=== PATIENT | female | born 2000 | race Caucasian/White ===

== ENCOUNTER 2024-06-14 11:09 | Emergency (ER) | payer OTHER, MEDICAID, SELFPAY ==
--- NOTE | ~2024-06-14 | CT_ITS ---
EXAMINATION: CT abdomen pelvis wo con DATE: 06/14/2024 13:00 INDICATION: Right flank pain. TECHNIQUE: Computed tomography (CT) of the abdomen and pelvis was performed without intravenous contr ast. Automated exposure control and iterative reconstruction technique were employed. The dose-length product was 1474.56 mGy-cm. COMPARISON: None. FINDINGS: The visualized portions of lung bases are clear without pneumonia or pleural effusion. The heart size is normal. No pericardial effusion. The liver, spleen, gallbladder, pancreas, adrenal glan ds, and kidneys are normal. There is no urolithiasis. There are no dilated loops of bowel. The append ix is normal. There is an umbilical hernia containing fat. There is a mildly enlarged left para-aorti c lymph node, likely reactive. There is physiologic fluid in the pelvis. There is fat stranding in th e greater omentum, likely edema or inflammation. There is mild thoracic and lumbar spondylosis. IMPRESSION: 1. No urolithiasis. 2. Umbilical hernia containing fat. 3. Fat stranding in the greater omentum, likely edema or inflammation. Reviewed, dictated and finalized at location B.
[2024-06-14 11:22] VITALS: BP 136/82; PULSE 78; RESP 16; TEMP 36.6; O2SAT 100
[2024-06-14 12:30] LABS: Basophils Percent Auto 0.6 % (0.2-1.2); Eosinophils Absolute Auto 0.2 K/mm3 (0-0.3); Eosinophils Percent Auto 2.7 % (0-4.4); Hematocrit 37.8 % (37.0-47.0); Immature Granulocyte Absolute 0.02 K/mm3 (0.00-0.031); Immature Granulocyte Percent A 0.3 % (0-0.5); Lymphocytes Absolute Auto 1.48 K/mm3 (0.9-3.2); Lymphocytes Percent Auto 22.5 % (18.3-44.2); Mean Corpuscular HGB Conc 31.7 g/dl (32-36); Mean Corpuscular Hemoglobin 25.6 pg (26-34); Mean Corpuscular Volume 80.8 fl (80-100); Mean Platelet Volume 9.1 fl (7.4-10.4); Monocytes Absolute Auto 0.4 K/mm3 (0.1-0.6); Monocytes Percent Auto 6.4 % (2.6-8.5); Neutrophils Absolute Auto 4.4 K/mm3 (1.3-6.7); Neutrophils Percent Auto 67.5 % (45.5-73.1); Platelet Count Result 264 k/mm3 (150-375); Red Blood Count 4.68 M/mm3 (4.2-5.4); Red Cell Distribution Width 14.6 % (11.5-14.5); White Blood Count 6.6 K/mm3 (4.5-10.0)
[2024-06-14 12:38] LABS: Add Urine Microscopic? NO; Appearance Urine Clear (Clear); Bilirubin Urine Negative (Negative); Blood Urine Negative (Negative); Color Urine Yellow (Yellow); Glucose Urine UA Negative (Negative); Ketones Urine Negative (Negative); Leukocyte Esterase Ur Negative LEU/UL (Negative); Nitrate Urine Negative (Negative); Protein Urine Negative (Negative); Specific Grav Ur 1.017 (1.001-1.035); Urobilinogen Urine 0.2 mg/dL (<2.0); pH Urine 7.5 (5.0-9.0)
[2024-06-14 12:41] LABS: Alanine Aminotransferase 17 U/L (6-35); Albumin Level 4.5 g/dL (3.5-5.1); Alkaline Phosphatase 66 U/L (38-126); Anion Gap 8 mmol/L (4-12); Aspartate Amino Transferase 28 U/L (14-36); Bilirubin,Total 0.3 mg/dL (0.2-1.3); Blood Urea Nitrogen 10 mg/dL (7-17); Calcium 8.9 mg/dL (8.4-10.2); Carbon Dioxide 21 mmol/L (22-30); Chloride 108 mmol/L (98-107); Estimated CRCL calculation 130 ml/min; Estimated Glomerular Filt Rate > 60; Glucose 98 mg/dL (65-110); Lipase 43 U/L (23-300); Potassium 4.6 mmol/L (3.4-5.0); Sodium 137 mmol/L (137-145)
[2024-06-14 12:45] LABS: BEDSIDEPREGUCG Negative (Negative)
--- NOTE | 2024-06-14 12:54 | ED_ITS ---
HPI - Back Pain/Injury General Chief Complaint: Back Pain/Injury Stated Complaint: back pain, pain when walking Time Seen by Provider: 06/14/24 12:02 History of Present Illness HPI Narrative: 23-year-old female with history of morbid obesity and umbilical hernia presents to the emergency department for evaluation of right-sided back pain radiating towards her abdomen. She states that she was diagnosed the umbilical hernia recently 2 weeks ago a different hospital. Is reducible and not bothering her today but she states that she started developing some back pain in the right- sided paraspinal muscles radiating towards her flank and into her abdomen. No history of kidney stones. No trauma or injury. She denies any paresthesias or numbness in her legs, no saddle anesthesias, no urinary incontinence. No fever chills. She was otherwise in her normal state of health. Has taken Tylenol without any relief of her symptoms. Related Data Allergies Allergy/AdvReac Type Severity Reaction Status Date / Time No Known Allergies Allergy Verified 06/14/24 11:13 Review of Systems 2 Review of Systems: As reviewed above in HPI Exam 2 Narrative: GENERAL: [Well-appearing, well-nourished, and in no acute distress.] HEAD: [Normocephalic, atraumatic.] EYES: [PERRLA and EOMI.] ENT: Nares clear, no rhinorrhea or epistaxis. Mucous membranes moist. NECK: Supple. CHEST: [Clear to auscultation. No respiratory distress.] HEART: [Regular rate and rhythm]. No murmur heard. [Normal peripheral pulses.] ABDOMEN: [Soft, nondistended], umbilical hernia is reducible, no overlying skin changes. [nontender], [No rigidity or guarding] no CVA tenderness. EXTREMITIES: Normal range of motion. [No edema.] Able to stand up and ambulate in the emergency department. Flexion and extension at the hips and ankles is 5/5 bilaterally. SKIN: Warm, dry, no rash. NEURO: [No focal deficits]. Alert and oriented [x3.] No saddle anesthesia. No incontinence. PSYCH: [Normal mood and affect.] Course Vital Signs Vital signs: Vital Signs Temperature 36.6 C 06/14/24 11:22 Pulse Rate 78 06/14/24 11:22 Respiratory Rate 16 06/14/24 11:22 Blood Pressure 136/82 06/14/24 11:22 Pulse Oximetry 100 06/14/24 11:22 Oxygen Delivery Room Air 06/14/24 11:22 Temperature 36.6 C 06/14/24 11:22 Pulse Rate 78 06/14/24 11:22 Respiratory Rate 16 06/14/24 11:22 Blood Pressure 136/82 06/14/24 11:22 Pulse Oximetry 100 06/14/24 11:22 Oxygen Delivery Room Air 06/14/24 11:22 MDM - Back Pain/Injury MDM Narrative Medical decision making narrative: 23-year-old otherwise healthy female presenting to the emergency department for evaluation of right-sided flank, back and abdominal pain. She was diagnosed with umbilical hernia recently and has an umbilical hernia examination is easily reducible without any overlying skin changes. Denies any urinary complaints. No red flag signs of back pain such as cauda equina or conus medullaris symptoms. No saddle anesthesia, no incontinence, no weakness or neuropathy. Strength is symmetric in both legs, able to ambulate and stand up in the emergency department. Normal vital signs. She is otherwise well-appearing but morbidly obese. Considerations presently are for kidney stone, renal colic, pyelonephritis, umbilical hernia, lumbago. Blood was obtained as well as urinalysis and urine test. A CT scan of the abdomen pelvis without contrast was obtained to assess for any potential kidney stones or other intra- abdominal process. She was given ketorolac and Robaxin and re-evaluated. Workup shows no leukocytosis or anemia. Normal platelet count. Electrolytes within normal limits, normal renal and hepatic function panel. Normal lipase. Urinalysis without signs of infection. Negative test. CT scan shows no urolithiasis or any acute process. She has an umbilical hernia containing fat which is not strangulated. Some fat stranding in the greater omentum likely edema versus inflammation. No pathological free fluid, mild thoracic and lumbar spondylosis. Normal liver spleen gallbladder pancreas, kidneys and adrenal glands. Patient re-evaluated with improvement in pain. She is not any acute distress and has normal vital signs and normal examination findings with unremarkable workup. She is safe and stable for discharge home with regular PCP follow-up this time. Medical Records Attestation: I reviewed the patient's medical records. Lab Data Attestation: I reviewed the patient's lab results. 06/14/24 12:21 06/14/24 12:21 Labs: Lab Results 06/14/24 06/14/24 06/14/24 Range/Units 12:21 12:26 12:42 WBC 6.6 (4.5-10.0) K/mm3 RBC 4.68 (4.2-5.4) M/mm3 Hgb 12.0 (12.0-15.0) g/dL Hct 37.8 (37.0-47.0) % MCV 80.8 (80-100) fl MCH 25.6 L (26-34) pg MCHC 31.7 L (32-36) g/dl RDW 14.6 H (11.5-14.5) % Plt Count 264 (150-375) k/mm3 MPV 9.1 (7.4-10.4) fl Immature Gran % (Auto) 0.3 (0-0.5) % Neut % (Auto) 67.5 (45.5-73.1) % Lymph % (Auto) 22.5 (18.3-44.2) % Dukes % (Auto) 6.4 (2.6-8.5) % Eos % (Auto) 2.7 (0-4.4) % Baso % (Auto) 0.6 (0.2-1.2) % Lymph # (Auto) 1.48 (0.9-3.2) K/mm3 Dukes # (Auto) 0.4 (0.1-0.6) K/mm3 Eos # (Auto) 0.2 (0-0.3) K/mm3 Baso # (Auto) 0.0 (0.0-0.1) K/mm3 Abs Immat Gran (auto) 0.02 (0.00-0.031) K/mm3 Absolute Neuts (auto) 4.4 (1.3-6.7) K/mm3 Absolute Nucleated RBC 0.000 (0.0-0.012) K/mm3 Nucleated RBC % 0.0 (0.0-0.2) % Sodium 137 (137-145) mmol/L Potassium 4.6 (3.4-5.0) mmol/L Chloride 108 H (98-107) mmol/L Carbon Dioxide 21 L (22-30) mmol/L Anion Gap 8 (4-12) mmol/L BUN 10 (7-17) mg/dL Creatinine 0.70 (0.7-1.0) mg/dL Estim Creat Clear Calc 130 ml/min Estimated GFR > 60 (59 - ) Glucose 98 (65-110) mg/dL Calcium 8.9 (8.4-10.2) mg/dL Total Bilirubin 0.3 (0.2-1.3) mg/dL AST 28 (14-36) U/L ALT 17 (6-35) U/L Alkaline Phosphatase 66 (38-126) U/L Total Protein 7.0 (6.3-8.2) g/dL Albumin 4.5 (3.5-5.1) g/dL Lipase 43 (23-300) U/L Urine Color Yellow (Yellow) Urine Appearance Clear (Clear) Urine pH 7.5 (5.0-9.0) Ur Specific [place] 1.017 (1.001-1.035) Urine Protein Negative (Negative) mg/dL Urine Glucose (UA) Negative (Negative) mg/dL Urine Ketones Negative (Negative) mg/dL Ur Blood (Man) Negative (Negative) Urine Nitrate Negative (Negative) Urine Bilirubin Negative (Negative) Urine Urobilinogen 0.2 (<2.0) mg/dL Leukocyte Esterase Rfl Negative (Negative) YESENIA/UL POC Urine HCG, Qual Negative (Negative) Imaging Data Attestation: I personally reviewed and interpreted this imaging study as follows: My impression: Impressions Abdomen/Pelvis CT 06/14/24 13:02 IMPRESSION: 1. No urolithiasis. 2. Umbilical hernia containing fat. 3. Fat stranding in the greater omentum, likely edema or inflammation. Discharge Plan Discharge Clinical Impression: Strain of lumbar region, Right flank pain, Hernia, umbilical Patient Disposition: Home, Self-Care Condition: Stable Instructions: Antibiotic Form, Acute Low Back Pain (ED), Flank Pain (ED), Lower Back Exercises (ED) Additional Instructions: Your CT scan shows no kidney stones, no organ damage or any concerning findings of your liver, spleen, gallbladder, pancreas, adrenal glands or kidneys. Labs are all normal. You have the umbilical hernia without any signs of obstruction. Some mild spondylosis of the lumbar region which is minor disc bulging but no concerning compression or deformity. We will send you home with some medications to try including oral anti-inflammatories and topical lidocaine patch. Follow-up with regular doctor. Return with any new or worsening concerns. Patient Language: Mongolian Prescriptions: New ketorolac 10 mg tablet 10 mg PO Q8H PRN (Reason: pain) 5 Days Qty: 20 0RF Rx Instructions: maximum total duration of 5 days from all oral, intranasal, or parenteral formulations lidocaine 5 % adhesive patch,medicated 1 patch topical DAILY Qty: 15 0RF Rx Instructions: leave on most painful area for up to 12 hrs Follow-up/Referrals: Sania,Nataly Leon APN [Primary Care Provider] - Time of Disposition: 14:18
--- OUTSIDE RECORDS SUMMARY | 2024-06-14 12:56 | XMS_ITS | Referral Summary ---
Author Organization [facility] Address [address] [place] [address] Care Team Providers Care Band Saw Operator Cake Cutting Name Role Phone Michael Sagastume MD Primary Care Provider [phone] Source Comments [facility],non-owned Affiliates and Associated Physician Practices is amultiple site organization consisting of ambulatory clinics and hospital sitesin [place], [place], [place] and [place]. This disclosure is being madepursuant to the Care Everywhere program and may not contain all information available regarding this patient. Last updated 17.[facility] Allergies No known active allergies Medications * Be aware that medications may not be up to date on this document. Alwaysverify current medications with the patient. Medication Sig Dispensed Refills Start Date End Date Status acetaminophen (TYLENOL) 500 MG tablet Take 1,000 mg by mouth every 4 hours as needed for Fever or Pain Maximum allowable Acetaminophen amount = 4 Grams (4000 mg) / 24 hours. Active multivitamin daily tablet Take 1 tablet by mouth daily with food Active fluticasone propionate (FLONASE) 50 MCG/ACT nasal spray [place] 2 sprays into each nostril once daily Aim at outer edges inside nostrils. 1 g 5 10/12/2019 Active montelukast (SINGULAIR) 5 MG chew tablet Take 1 tablet by mouth at bedtime 30 tablet 3 10/12/2019 Active sodium chloride-sodium bicarb 2300-700mg (NEILMED SINUS RINSE) 2300-700 MG Kit [place] 1 kit into each nostril as directed 1 kit 11 10/12/2019 Active ondansetron, disintegrating, (ZOFRAN ODT) 4 MG tablet Take 1 tablet by mouth every 6 hours as needed for Nausea/Vomiting Allow tablet to dissolve on the tongue 30 tablet 3 01/24/2020 Active naproxen (NAPROSYN) 500 MG tablet Take 1 tablet by mouth 2 times daily as needed for Pain (3 days per week at most) 24 tablet 3 01/24/2020 Active Vit-Fe Fumarate-FA ( VITAMIN) 28-0.8 MG tablet Take 1 tablet by mouth once daily Active Active Problems Problem Noted Date Diagnosed Date Chronic headache 07/19/2018 Nausea and vomiting 07/19/2018 DERIK (obstructive sleep apnea) DERIK on CPAP Estimated Date of Delivery Comme nts Yes 11/09/2020 Immunizations Name Administration Dates Next Due DTaP VACCINE IM (6wk-6yrs) 12/15/2004,,04/04/2001,2000,2000 HEP A PEDS 2 DOSE 05/24/2008,04/14/2006 HEP B VACCINE, PED/ADOL 04/04/2001,01/28/2001, HIB-PRP-T 4 DOSE 01/09/2002, 1,01/28/2001,2000 Human Papilloma Virus Vaccine 10/25/2012, 012,10/15/2011 INFLUENZA VACCINE, QUADR. (F LUZONE; FLULAVAL; FLUARIX; AFLURIA QUADRIVALENT; 6MO+), 0.5 ML (IIV4) 01/15/2014 MENINGOCOCAL MENINGITIS 10/15/2011 MMR 12/15/2004,01/09/2002 POLIO IPV 12/15/2004, 1,01/28/2001,2000 TDAP (7yrs+) 10/15/2011 VARICELLA 05/24/2008,01/09/2002 Social History Tobacco Use Types Packs/Day Years Used Date Smoking Tobacco: Never Smokeless Tobacco: Never Alcohol Use Standard Drinks/Week Comments Not Asked 0 (1 standard drink = 0.6 oz pur e alcohol) Estimated Date of Delivery Comme nts Yes 11/09/2020 Sex and Gender Information Value Date Recorded Sex Assigned at Not on file Gender Identity Not on file Sexual Orientation Not on file Last Filed Vital Signs Vital Sign Reading Time Taken Comments Blood Pressure 134/80 04/11/2020 2:51 PM EMPLOYMENT INTERVIEWER Pulse 90 04/26/2019 9:11 AM EMPLOYMENT INTERVIEWER Temperature 36.6 C (97.9 F) 04/27/2018 11:14 AM EMPLOYMENT INTERVIEWER per pcp Respiratory Rate 20 04/27/2018 11:1 4 AM EMPLOYMENT INTERVIEWER per pcp Oxygen Saturation 97% 04/26/2019 9:11 AM EMPLOYMENT INTERVIEWER Inhaled Oxygen Concentration - - Weight 123.7 kg (272 lb 11.3 oz) 04/11/2020 2:51 PM EMPLOYMENT INTERVIEWER Height 165.8 cm (5' 5.28 ) 04/11/2020 2:51 PM CS T Body Mass Index 45 04/11/2020 2:51 PM EMPLOYMENT INTERVIEWER Plan of Treatment Not on file DAVEYORIN Personal/Famil y Other [address] [place] [address] DAVEYORIN Personal/Famil y Other [address] [place] [address] DAVEYORIN Personal/Famil y Other [address] [place] [address] RAYSA MARISCAL Personal/Famil y Other [address] [address] DAVEYORIN Personal/Famil y Other [address] [place] [address] DAVEYORIN Personal/Famil y Other [address] [place] [address] ORIN MARISCAL Personal/Famil y Other [address] [place] [address] Care Teams Band Saw Operator Cake Cutting Relationship Specialty Start Date End Date Michael Sagastume MD [address] [place], [place] [id number] PCP - General 12/31/17
--- OUTSIDE RECORDS SUMMARY | 2024-06-14 12:56 | XMS_ITS ---
Care Plan - [facility] Created on: June 14, 2024 KASIE NOE Simon : 2000 Sex: Female Author Organization [facility] Address [address] [place] [address] Phone Care Team Providers Care Non Destructive Testing Scientist Name Role Phone WEBSTER EVER BARGER, ADITI Primary Care Provider [phone] DINO HIDALGO, [place] Unavailable [phone]
--- OUTSIDE RECORDS SUMMARY | 2024-06-14 12:56 | XMS_ITS | Patient Health Summary ---
Author Organization [facility] Address [address] [place] [address] Care Team Providers Care Lease Out Worker Name Role Phone Michael Sagastume MD Primary Care Provider [phone] Note from [facility],non-owned Affiliates and Associated Physician Practices is amultiple site organization consisting of ambulatory clinics and hospital sitesin [place], [place], [place] and [place]. This disclosure is being madepursuant to the Care Everywhere program and may not contain all information available regarding this patient. Last updated 17.[facility] Allergies No known active allergies Medications * Be aware that medications may not be up to date on this document. Alwaysverify current medications with the patient. * acetaminophen (TYLENOL) 500 MG tablet Take 1,000 mg by mouth every 4 hours as needed for Fever or Pain Maximum allowable Acetaminophen amount = 4 Grams (4000 mg) / 24 hours. * multivitamin daily tablet Take 1 tablet by mouth daily with food * fluticasone propionate (FLONASE) 50 MCG/ACT nasal spray(Started 10/12/2019) [place] 2 sprays into each nostril once daily Aim at outer edges inside nostrils. 5 refills by 2020 * montelukast (SINGULAIR) 5 MG chew tablet(Started 10/12/2019) Take 1 tablet by mouth at bedtime 3 refills by 2020 * sodium chloride-sodium bicarb 2300-700mg (NEILMED SINUS RINSE) 2300-700 MG Kit (Started 10/12/2019) [place] 1 kit into each nostril as directed 11 refills by 2020 * ondansetron, disintegrating, (ZOFRAN ODT) 4 MG tablet(Started 01/24/2020) Take 1 tablet by mouth every 6 hours as needed for Nausea/Vomiting Allow tablet to dissolve on the tongue 3 refills by 01/23/2021 * naproxen (NAPROSYN) 500 MG tablet(Started 01/24/2020) Take 1 tablet by mouth 2 times daily as needed for Pain (3 days per week at most) 3 refills by 01/23/2021 * Vit-Fe Fumarate-FA ( VITAMIN) 28-0.8 MG tablet Take 1 tablet by mouth once daily Active Problems Problem Noted Date Diagnosed Date Chronic headache 07/19/2018 Nausea and vomiting 07/19/2018 DERIK (obstructive sleep apnea) DERIK on CPAP Immunizations * DTaP VACCINE IM (6wk-6yrs)(Given 12/15/2004, 01/09/2002, 04/04/2001, 01/28/2001, 2000) * HEP A PEDS 2 DOSE(Given 05/24/2008, 04/14/2006) * HEP B VACCINE, PED/ADOL(Given 04/04/2001, 01/28/2001, 2000) * HIB-PRP-T 4 DOSE(Given 01/09/2002, 04/04/2001, 01/28/2001, 2000) * Human Papilloma Virus Vaccine(Given 10/25/2012, 02/16/2012, 10/15/2011) * INFLUENZA VACCINE, QUADR. (FLUZONE; FLULAVAL; FLUARIX; AFLURIA QUADRIVALENT; 6MO+), 0.5 ML (IIV4)(Given 01/15/2014) * MENINGOCOCAL MENINGITIS(Given 10/15/2011) * MMR(Given 12/15/2004, 01/09/2002) * POLIO IPV(Given 12/15/2004, 04/04/2001, 01/28/2001, 2000) * TDAP (7yrs+)(Given 10/15/2011) * VARICELLA(Given 05/24/2008, 01/09/2002) Social History Tobacco Use Types Packs/Day Years [...] Comments Blood Pressure 134/80 04/11/2020 2:51 PM RESOURCE ROOM TEACHER Pulse 90 04/26/2019 9:11 AM RESOURCE ROOM TEACHER Temperature 36.6 C (97.9 F) 04/27/2018 11:14 AM RESOURCE ROOM TEACHER per pcp Respiratory Rate 20 04/27/2018 11:1 4 AM RESOURCE ROOM TEACHER per pcp Oxygen Saturation 97% 04/26/2019 9:11 AM RESOURCE ROOM TEACHER Inhaled Oxygen Concentration - - Weight 123.7 kg (272 lb 11.3 oz) 04/11/2020 2:51 PM RESOURCE ROOM TEACHER Height 165.8 cm (5' 5.28 ) 04/11/2020 2:51 PM CS T Body Mass Index 45 04/11/2020 2:51 PM RESOURCE ROOM TEACHER Procedures * EKG 15-LEAD(Performed 01/24/2020) Performed for Syncope and collapse, Non-intractable vomiting with nausea, unspecified vomiting type * HEMOGLOBIN A1C(Performed 01/24/2020) Performed for Migraine without aura and without status migrainosus, not intractable, Non-intractable vomiting with nausea, unspecified vomiting type * AMYLASE BLOOD(Performed 01/24/2020) Performed for Migraine without aura and without status migrainosus, not intractable, Non-intractable vomiting with nausea, unspecified vomiting type * LIPASE BLOOD(Performed 01/24/2020) Performed for Migraine without aura and without status migrainosus, not intractable, Non-intractable vomiting with nausea, unspecified vomiting type * TSH(Performed 01/24/2020) Performed for Migraine without aura and without status migrainosus, not intractable, Non-intractable vomiting with nausea, unspecified vomiting type * T4 FREE(Performed 01/24/2020) Performed for Migraine without aura and without status migrainosus, not intractable, Non-intractable vomiting with nausea, unspecified vomiting type * MAGNESIUM BLOOD(Performed 01/24/2020) Performed for Migraine without aura and without status migrainosus, not intractable, Non-intractable vomiting with nausea, unspecified vomiting type * COMPREHENSIVE METABOLIC PANEL(Performed 01/24/2020) Performed for Migraine without aura and without status migrainosus, not intractable, Non-intractable vomiting with nausea, unspecified vomiting type * CBC W AUTO DIFFERENTIAL(Performed 01/24/2020) Performed for Migraine without aura and without status migrainosus, not intractable, Non-intractable vomiting with nausea, unspecified vomiting type * PEDIATRIC DIAGNOSTIC POLYSOMNOGRAM(Performed 10/23/2018) Performed for Loud snoring, Headache disorder Results * EKG 15-LEAD (01/24/2020 11:54 AM CDT) Ventricular Rate 65 BPM CG MUSE Atrial Rate 65 BPM CG MUSE P-R Interval 122 ms CG MUSE QRS Duration ms 76 ms CG MUSE Q-T Interval ms 404 ms CG MUSE QTC Calculation (Bezet) 420 ms CG MUSE Calculated P [place] 90 degrees CG MUSE Calculated R [place] 88 degrees CG MUSE Calculated T [place] 62 degrees CG MUSE Interpretation EKG Normal sinus rhythm Normal ECG No previous ECGs available Confirmed by MD MICHELLE, KSENIA ([id number]) on 01/24/2020 6:12:56 PM CG MUSE 01/24/2020 11:5 4 AM CDT 01/24/2020 6:12 PM CDT Genet Manuel INDEPENDENT CONSULTANT-EXECUTIVE DIRECTOR OF NURSING ECG ORDERA BLES CG MUSE * HEMOGLOBIN A1C (01/24/2020 11:36 AM CDT) Hemoglobin A1c 5.5 3.4 - 6.1 % 01/24/2020 12:36 PM CDT [facility] Estimated Average Glucose 111 mg/dL 01/24/2020 12:36 PM CDT [facility] Blood BLOOD SPECIMEN / Unknown Lab Venipuncture / Unknown 01/24/2020 11:36 AM CDT 01/24/2020 11:56 AM CDT Genet Manuel INDEPENDENT CONSULTANT-EXECUTIVE DIRECTOR OF NURSING LAB - CHEM ISTRY ORDERABLES [facility] [address] [place] [address] * (ABNORMAL) CBC W DIFFERENTIAL (01/24/2020 11:36 AM CDT) WBC 7.2 4.4 - 10.7 x10E9/L 01/24/2020 12:30 PM CDT [facility] WBC Corrected 01/24/2020 12:30 PM CDT [facility] RBC 4.69 3.80 - 5.20 x10E12/L 01/24/2020 12:30 PM CDT [facility] Hemoglobin 12.6 12.0 - 15.6 gm/dL 01/24/2020 12:30 PM CDT [facility] Hematocrit 39.4 35.9 - 45.5 % 01/24/2020 12:30 PM CDT [facility] MCV 84.0 80.7 - 102.0 fl 01/24/2020 12:30 PM CDT [facility] MCH 26.9 26.7 - 34.0 pg 01/24/2020 12:30 PM CDT [facility] MCHC 32.0 30.8 - 35.9 gm/dL 01/24/2020 12:30 PM CDT [facility] Platelet Count 310 153 - 416 x10E9/L 01/24/2020 12:30 PM CDT [facility] RDW-CV 13.2 12.1 - 14.9 % 01/24/2020 12:30 PM CDT [facility] MPV 9.3(L) 9.4 - 12.9 fl 01/24/2020 12:30 PM CDT [facility] Neutrophils % 60.1 44.0 - 73.0 % 01/24/2020 12:30 PM CDT [facility] Lymphocytes % 31.9 20.0 - 43.0 % 01/24/2020 12:30 PM CDT [facility] Monocytes % 6.1 5.0 - 13.0 % 01/24/2020 12:30 PM CDT [facility] Eosinophils % 1.0 0.0 - 6.0 % 01/24/2020 12:30 PM CDT [facility] Basophils % 0.6 0.0 - 2.0 % 01/24/2020 12:30 PM CDT [facility] Immature Granulocytes 0.3 0 - 1 % 01/24/2020 12:30 PM CDT [facility] Neutrophil Absolute 4.35 2.01 - 7.14 x10E9/L 01/24/2020 12:30 PM CDT [facility] Lymphocytes Absolute 2.30 1.07 - 3.94 x10E9/L 01/24/2020 12:30 PM CDT [facility] Monocytes Absolute 0.44 0.26 - 1.07 x10E9/L 01/24/2020 12:30 PM CDT [facility] Eosinophils Absolute 0.07 0 - 0.47 x10E9/L 01/24/2020 12:30 PM CDT [facility] Basophils Absolute 0.04 0 - 0.08 x10E9/L 01/24/2020 12:30 PM CDT [facility] Immature Granulocytes Absolute 0.02 0.00 - 0.06 x10E9/L 01/24/2020 12:30 PM T [facility] nRBC Auto 0 /100 WBC 01/24/2020 12:30 PM T [facility] Blood BLOOD SPECIMEN / Unknown Lab Venipuncture / Unknown 01/24/2020 11:36 AM CDT 01/24/2020 11:56 AM CDT Genet Manuel APRN-EXECUTIVE DIRECTOR OF NURSING LAB - JOSÉ MIGUEL TOLOGY ORDERABLES Performing Organization Address City/State/[facility] Co de Phone Number [facility] [address] [place] [phone] * (ABNORMAL) COMPREHENSIVE METABOLIC PANEL (01/24/2020 11:36 AM CDT) [facility] Glucose 104 70 - 105 mg/dL 01/24/2020 12:34 PM CDT [facility] Sodium 140 136 - 145 mmol/L 01/24/2020 12:34 PM CDT [facility] Potassium 4.7 3.5 - 5.1 mmol/L 01/24/2020 12:34 PM T [facility] Chloride 108(H) 98 - 107 mmol/L 01/24/2020 12:34 PM T [facility] CO2 25 22 - 29 mmol/L 01/24/2020 12:34 PM CDT [facility] Calcium 8.97(L) 9.08 - 10.48 mg/dL 01/24/2020 12:34 PM T [facility] Anion Gap 7 5 - 20 mmol/L 01/24/2020 12:34 PM T [facility] BUN 4.3(L) 5.3 - 18.7 mg/dL 01/24/2020 12:34 PM T [facility] Creatinine 0.67 0.61 - 1.07 mg/dL 01/24/2020 12:34 PM T [facility] Alkaline Phosphatase 85 39 - 139 U/L 01/24/2020 12:34 PM CDT [facility] ALT 38 8 - 65 U/L 01/24/2020 12:34 PM T [facility] AST 28 5 - 34 U/L 01/24/2020 12:34 PM T [facility] Protein Total 7.3 6.3 - 8.2 gm/dL 01/24/2020 12:34 PM T [facility] Albumin 4.2 3.3 - 4.9 gm/dL 01/24/2020 12:34 PM T [facility] Bilirubin Total 0.3 0.3 - 1.2 mg/dL 01/24/2020 12:34 PM T [facility] eGFR by MDRD >60 >60 mL/min/1.7 3m2 01/24/2020 12:34 PM T [facility] eGFR by MDRD >60 >60 mL/min/1.7 3m2 01/24/2020 12:34 PM T [facility] Blood BLOOD SPECIMEN / Unknown Lab Venipuncture / Unknown 01/24/2020 11:36 AM CDT 01/24/2020 11:56 AM CDT Genet Manuel INDEPENDENT CONSULTANT-EXECUTIVE DIRECTOR OF NURSING LAB - CHEM ISTRY ORDERABLES [facility] [address] [place] [phone] * (ABNORMAL) MAGNESIUM BLOOD (01/24/2020 11:36 AM CDT) Magnesium 2.7(H) 1.7 - 2.3 mg/dL 01/24/2020 12:37 PM CDT [facility] Blood BLOOD SPECIMEN / Unknown Lab Venipuncture / Unknown 01/24/2020 11:36 AM CDT 01/24/2020 11:56 AM CDT Genet Manuel INDEPENDENT CONSULTANT-EXECUTIVE DIRECTOR OF NURSING LAB - CHEM ISTRY ORDERABLES [facility] [address] [place] [phone] * LIPASE BLOOD (01/24/2020 11:36 AM CDT) Lipase 14 10 - 220 U/L 01/24/2020 12:35 PM CDT [facility] Blood BLOOD SPECIMEN / Unknown Lab Venipuncture / Unknown 01/24/2020 11:36 AM CDT 01/24/2020 11:56 AM CDT Genet Manuel INDEPENDENT CONSULTANT-EXECUTIVE DIRECTOR OF NURSING LAB - CHEM ISTRY ORDERABLES Performing Organization Address City/[facility] Co de Phone Number [facility] [address] [place] [phone] * AMYLASE BLOOD (01/24/2020 11:36 AM CDT) Amylase 40 25 - 125 U/L 01/24/2020 12:35 PM CDT [facility] Blood BLOOD SPECIMEN / Unknown Lab Venipuncture / Unknown 01/24/2020 11:36 AM CDT 01/24/2020 11:56 AM CDT Genet Manuel INDEPENDENT CONSULTANT-EXECUTIVE DIRECTOR OF NURSING LAB - CHEM ISTRY ORDERABLES Performing Organization Address City/[facility]/ZIP Co de Phone Number [facility] [address] [place] [phone] * TSH (01/24/2020 11:36 AM CDT) TSH 0.52 0.35 - 4.95 uIU/mL 01/24/2020 12:58 PM CDT [facility] Blood BLOOD SPECIMEN / Unknown Lab Venipuncture / Unknown 01/24/2020 11:36 AM CDT 01/24/2020 11:56 AM CDT Genet Manuel INDEPENDENT CONSULTANT-EXECUTIVE DIRECTOR OF NURSING LAB - CHEM ISTRY ORDERABLES Performing Organization Address City/[facility]/ZIP Co de Phone Number [facility] [place] [address] * T4 FREE (01/24/2020 11:36 AM CDT) T4 Free 1.03 0.70 - 1.48 ng/dL 01/24/2020 1:00 PM CDT [facility] Blood BLOOD SPECIMEN / Unknown Lab Venipuncture / Unknown 01/24/2020 11:36 AM CDT 01/24/2020 11:56 AM CDT Genet Manuel INDEPENDENT CONSULTANT-EXECUTIVE DIRECTOR OF NURSING LAB - CHEM ISTRY ORDERABLES Performing Organization Address [facility] Co de Phone Number [facility] [address] [place] [phone] * PEDIATRIC DIAGNOSTIC POLYSOMNOGRAM (10/23/2018) Pathologist [facility] Linked Results See Linked Results SLEEP CENTER 10/23/2018 Genet Manuel INDEPENDENT CONSULTANT-EXECUTIVE DIRECTOR OF NURSING [facility] ER ORDERABLES [facility] Care Teams Lease Out Worker Relationship Specialty Start Date End Date Michael Sagastume MD [address] [place], [place] [phone] PCP - General 12/31/17
--- OUTSIDE RECORDS SUMMARY | 2024-06-14 12:56 | XMS_ITS | Clinical Summary ---
Author Organization [facility] Address [address] [place] [address] Care Team Providers Care Power Distributor Name Role Phone Michael Sagastume MD Primary Care Provider [phone] [facility],non-owned Affiliates and Associated Physician Practices is amultiple site organization consisting of ambulatory clinics and hospital sitesin [place], [place], [place] and [place]. This disclosure is being madepursuant to the Care Everywhere program and may not contain all information available regarding this patient. Last updated 17.[facility] Allergies No known active allergies [...] fluticasone propionate (FLONASE) 50 MCG/ACT nasal spray [place] 2 sprays into each nostril once daily Aim at outer edges inside nostrils. 1 g 5 10/12/2019 Active montelukast (SINGULAIR) 5 MG chew tablet Take 1 tablet by mouth at bedtime 30 tablet 3 10/12/2019 Active sodium chloride-sodium bicarb 2300-700mg (NEILMED SINUS RINSE) 2300-700 MG Kit [place] 1 kit into each nostril as directed [...] 12/15/2004, 1,01/28/2001,2000 TDAP (7yrs+) 10/15/2011 VARICELLA 05/24/2008,01/09/2002 Family History Medical History Relation Name Comments CAD (Coronary Artery Disease) Maternal Grandmother Stroke Mother Relation Name Status Comments Maternal Grandmother Mother Social History Tobacco Use Types Packs/Day Years [...] Comments Blood Pressure 134/80 04/11/2020 2:51 PM SAMPLE TESTER GRINDER Pulse 90 04/26/2019 9:11 AM SAMPLE TESTER GRINDER Temperature 36.6 C (97.9 F) 04/27/2018 11:14 AM SAMPLE TESTER GRINDER per pcp Respiratory Rate 20 04/27/2018 11:1 4 AM SAMPLE TESTER GRINDER per pcp Oxygen Saturation 97% 04/26/2019 9:11 AM SAMPLE TESTER GRINDER Inhaled Oxygen Concentration - - Weight 123.7 kg (272 lb 11.3 oz) 04/11/2020 2:51 PM SAMPLE TESTER GRINDER Height 165.8 cm (5' 5.28 ) 04/11/2020 2:51 PM CS T Body Mass Index 45 04/11/2020 2:51 PM SAMPLE TESTER GRINDER Plan of Treatment Health Maintenance Due Date Last Done Comments PAP SMEAR 2000 HIV SCREENING 10/12/2015 CHLAMYDIA/GONORRHEA SCREENING 2016 MENINGOCOCCAL (Group B) VACCINE SHARED DECISION-MAKING (1 of 2 - Standard) 2016 HEPATITIS C SCREENING 10/07/2018 OB-ONE HOUR GLUCOSE 08/03/2020 OB-TDAP CURRENT 08/10/2020 10/15/2011 OB-RHOGAM INJECTION 08/17/2020 OB-GROUP B STREP SCREEN 10/05/2020 DTAP/TDAP/TD VACCINES (7 - Td or Tdap) 10/14/2021 10/15/2011, 12/15/2004, 01/09/2002, Additional history exists COVID-19 VACCINE ( - 2023- season) 2023 INFLUENZA VACCINE (#1) 2023 01/15/2014 DEPRESSION SCREENING 04/05/2024 ZOSTER VACCINE (1 of 2) 2050 Respiratory Syncytial Virus (RSV) Vaccine Pt: or over 60 yrs (1 - 1-dose 75+ series) 10/12/2075 HEPATITIS B VACCINE Completed 04/04/2001, 01/28/2001, 2000 HIB VACCINE Completed 01/09/2002, 03/07, 01/28/2001, Additional history exists MENINGOCOCCAL GROUPS A/C/Y/W VACCINE Aged Out 10/15/2011 No longer eligible based on patient's age to complete this topic HPV VACCINE Completed 10/25/2012, 02/03, 10/15/2011 PNEUMOCOCCAL VACCINE Aged Out No long er eligible based on patient's age to complete this topic KASIE,ORIN Personal/Famil y Other [address] [place] [address] KASIE,ORIN Personal/Famil y Other [address] [place] [address] RAYSA MARISCAL Personal/Famil y Other [address] [place] [phone] MARISCAL,ORIN Personal/Famil y Other [address] [place] [address] KASIE,ORIN Personal/Famil y Other [address] [place] [address] KASIE,ORIN Personal/Famil y Other [address] [place] [address] Care Teams Power Distributor Relationship Specialty Start Date End Date Michael Sagastume MD [address] [place], [place] [phone] PCP - General 12/31/17
--- OUTSIDE RECORDS SUMMARY | 2024-06-14 12:57 | XMS_ITS | Referral Summary ---
Author Organization [address] Address [address] [place] [id number] Care Team Providers Care Lay Out And Detail Drafter Name Role Phone Sania, Nataly Dunaway HEAD REFRIGERATING ENGINEER Primary Care Provider [phone] Encounters Date Type Department Care Team Description 04/07/2024 11:15 AM WATER TREATMENT OPERATOR Office Visit [facility] at [address] [place] [address] Sheron Breaux NP Dental infection (Primary Dx) from Last 3 Months Allergies No known active allergies Medications 25/iron fum/folic/dha (-1 ORAL) Take by mouth daily Active fluticasone propionate (FLONASE) 50 mcg/actuation nasal sprayIndication s:Right ear pain Administer 2 sprays into each nostril daily 3 each 4 4 Active Additional Information Patient not taking.Reported on 04/07/2024 ketorolac (TORADOL) 10 mg tablet Take 1 tablet (10 mg total) by mouth every 6 (six) hours as needed for pain 20 tablet 4 Active Additional Information Patient not taking.Reported on 04/07/2024 chlorhexidine (PERIDEX) 0.12 % oral rinse Apply 15 mL to the mouth or throat 2 (two) times a day 120 mL 4 Active Additional Information Patient not taking.Reported on 04/07/2024 Active Problems Problem Noted Date Diagnosed Date Vaginal bleeding during 02/13/2024 IUFD at 20 weeks or more of gestation 02/13/2024 Term 09/29/2022 Immunizations Immunization Administration Dates Next Due MMR 09/30/2022 Tdap 05/16/2023 Social History Tobacco Use Types Packs/Day Years Used Date Smoking Tobacco: Never Smokeless Tobacco: Never Tobacco Cessation:Counseling Given: Not Answered Alcohol Use Standard Drinks/Week Comments Never 0 (1 standard drink = 0.6 oz pur e alcohol) Social Connection and Isolat ion Panel [NHANES] Answer Date Recorded In a typical week, how many times do you talk on the phone with family, friends, or neighbors? More than three times a week 09/29/2022 How often do you get togethe r with friends or relatives? More than three times a week 09/29/2022 How often do you attend chur or hindu services? Patient declined 09/29/2022 Do you belong to any clubs o r organizations such as faith groups, unions, fraternal or athletic groups, or school groups? No 09/29/2022 How often do you attend meet ings of the clubs or organizations you belong to? Never 09/29/2022 Are you , , di vorced, , never , or living with a partner? Living with partner 09/29/2022 AUDIT-C Answer Date Recorded Q1: How often do you have a drink containing alcohol? Never 09/29/2022 Q2: How many drinks containi ng alcohol do you have on a typical day when you are drinking? Patient does not drink Q3: How often do you have si x or more drinks on one occasion? Never 09/29/2022 Overall Financial Resource Strain (CARDIA) Answe r Date Recorded How hard is it for you to pa y for the very basics like food, housing, medical care, and heating? Not hard at all 02/13/2024 PHQ-2 Answer Date Recorded PHQ-2 Total Score (If total score is 3 or more points, staff should administer the PHQ-9) 0 09/29/2022 [facility] - Occupational Stress Questionnaire Answer Date Recorded Do you feel stress - tense, restless, nervous, or anxious, or unable to sleep at night because your mind is troubled all the time - these days? Not at all 09/29/2022 Exercise Vital Sign Answer Date Recorde d On average, how many days pe r week do you engage in moderate to strenuous exercise (like a brisk walk)? 2 days 09/29/2022 On average, how many minutes do you engage in exercise at this level? 60 min 09/29/2022 Hunger Vital Sign Answer Date Recorded Within the past 12 months, y ou worried that your food would run out before you got the money to buy more. Never true 09/30/19 23 Within the past 12 months, t he food you bought just didn't last and you didn't have money to get more. Never true 09/29/2022 PRAPARE - Transportation Answer Date Re corded In the past 12 months, has l ack of transportation kept you from medical appointments or from getting medications? No 02/03 In the past 12 months, has l ack of transportation kept you from meetings, work, or from getting things needed for daily living? No 02/13/2024 Housing Stability Vital Sign Answer Henrry e Recorded In the last 12 months, was t here a time when you were not able to pay the mortgage or rent on time? No 09/29/2022 In the last 12 months, how many places have you lived? 1 09/29/2022 In the last 12 months, was t here a time when you did not have a steady place to sleep or slept in a group home (including now)? No 09/29/2022 Personal Safety Answer Date Recorded Have you ever been in or are you currently in a harmful physical or emotional relationship or is someone making you feel afraid or unsafe? Denies 03/10/2024 Comments No Sex and Gender Information Value Date Recorded Sex Assigned at Not on file Legal Sex Female 6:26 AM WATER TREATMENT OPERATOR Gender Identity Not on file Sexual Orientation Not on file Last Filed Vital Signs Vital Sign Reading Time Taken Comments Blood Pressure 106/60 04/07/2024 11:08 AM WATER TREATMENT OPERATOR Pulse 76 04/07/2024 11:08 AM WATER TREATMENT OPERATOR Temperature 37.1 C (98.7 F) 04/07/2024 11:08 AM WATER TREATMENT OPERATOR Respiratory Rate 16 04/07/2024 11:08 AM WATER TREATMENT OPERATOR Oxygen Saturation 99% 04/07/2024 11:08 AM WATER TREATMENT OPERATOR Inhaled Oxygen Concentration - - Weight 99.8 kg (220 lb) 04/07/2024 11:08 AM WATER TREATMENT OPERATOR Height 162.6 cm (5' 4 ) 04/07/2024 11:08 AM WATER TREATMENT OPERATOR Body Mass Index 37.76 04/07/2024 11:08 AM WATER TREATMENT OPERATOR Plan of Treatment Not on file Procedures Procedure Name Priority Date/Time Associated Diagnosis Comments N. GONORRHOEAE/C. TRACHOMATIS AMPLIFICATION TEST STAT 12/19/2017 3:56 PM CDT from Last 3 Months or Most Recently Relevant to Health Maintenance Results * N. gonorrhoeae/C. trachomatis amplification test Urine (12/19/2017 3:56 PM CDT) Report Final Report: Negative for: Chlamydia trachomatis rRNA Negative for: Neisseria gonorrhoeae rRNA [facility] Comment:Testing performed by : [facility], [address] [place]., [address] Urine 12/19/2017 3:56 PM CDT 12/19/2017 4:13 PM CDT Narrative [facility] - 12/20/2017 2:04 PM CDT Testing performed by the Gen-[employer] APTIMA Combo 2 Assay. This nucleic acid amplification test (NAAT) detects ribosomal RNA (rRNA) from Chlamydia trachomatis and Neisseria gonorrhoeae using target capture,and Weatherstrip Machine Operator-Mediated Amplification (TMA). This test is approved by the [facility] Food and Drug Administration for endocervical, vaginal, and male urethral swab specimens, in addition to male and female urine specimens. The performance characteristics for these specimen types have been verified by the [facility].The performance characteristics of this assay for pharyngeal and rectal specimens collected from cervical swab collection devices have been validated and verified by the [facility]. Verification studies support a lack of cross reactivity with other Neisseria species considered normal oropharyngeal bacterial markel. Rectal swab specimens containing excess stool may be inhibitory and result in false negatives for Chlamydia trachomatis or Neisseria gonorrhoeae. The performance characteristics of this test have not been evaluated in women or individuals less than 16 years of age. us Eugenia Pabon MD LAB MICROBIOLOGY - GENERAL ORDERABLES Final Result [facility] [place] [address] from Last 3 Months or Most Recently Relevant to Health Maintenance Insurance [employer] COMMERCIAL GENERIC [facility] IDPA [facility] ANTHEM ACCESS CHOICE IDPA ANTH ACCESS CHOICE [facility] CMR Advance Directives For more information, please contact: [phone] * Full Code (Latest Code Status on File) Date Activated Date Inactivated Comments 09/29/2022 9:11 PM 10/01/2022 1:32 AM * Full Code Date Activated Date Inactivated Comments 09/29/2022 6:40 AM 09/29/2022 9:11 PM Full CPR in case of cardiopulmonary arrest * Full Code Date Activated Date Inactivated Comments 11/06/2020 11:21 PM 11/08/2020 6:53 PM * Full Code Date Activated Date Inactivated Comments 11/04/2020 6:31 PM 11/06/2020 11:21 PM Full CPR in c ase of cardiopulmonary arrest Care Teams Lay Out And Detail Drafter Relationship Specialty Start Date End Date Nataly Lui NP [address] [place] [address] PCP - General 09/11/20
--- OUTSIDE RECORDS SUMMARY | 2024-06-14 12:57 | XMS_ITS | Data Portability ---
Author Organization [facility] Address [address] [place] [address] Care Team Providers Care Custom Bike Builder Name Role Phone NATALY WEBSTER Primary Care Provider YURI Arboleda Aeronautical Engineering Technologist Assessment Encounter Date Assessment Date Assessment LastModified by Organization Details LastModified Time 09/14/2022 09/14/2022 37 weeks, second baby, doing well Not available 09/14/2022 11:46:25 09/22/2022 09/22/2022 38 1/7 week ; plan 39 week induction next week Not available 09/22/2022 11:57:48 10/12/2022 10/12/2022 PPD check today is good. , has enough help exam in 4 weeks after second vaginal delivery maybe minipill? Not available 10/12/2022 12:02:07 Plan of Treatment Reminders Order Date Submit Date Provider Last Modified By Organization Details Last Modified Time Details Appointments ANY 30 2024 02:00P M Nataly Webster APN, VERIFICATION SPECIALIST-C Not available Not available Not available Lab magnesi um, serum or plasma 2023 024 [facility], [address] [facility], [facility] [address], [place], [address], 07/07/2023 04:09:02 vitamin B12 + folate, serum or blood 2023 024 [facility], [address] [facility], [facility] [address], [place], [address], 07/07/2023 04:09:01 TSH, ultra-s ensitiv e, serum 04/02/ 2024 04/02/2 024 [facility] [address], [place], [address], 07/07/2023 04:09:00 CMP, serum or plasma 2023 024 [facility] [address], [place], [address], 07/07/2023 04:09:00 lipid panel, serum 2023 024 [facility] [address], [place], [address], 07/07/2023 04:08:59 CBC 2023 024 [facility] [address], [place], [address], 07/07/2023 04:09:03 urinaly sis, dipstic k 2022 023 In-Office Order, Internal Use Only DO Not Attach Compendium DO Not Attach Compendium, Do Not Delete/merge, [id number] 09/22/2022 11:57:48 urinaly sis, dipstic k 2022 023 In-Office Order, Internal Use Only DO Not Attach Compendium DO Not Attach Compendium, Do Not Delete/merge, [id number] 09/14/2022 11:46:25 Referral psychia trist referra l 2023 024 MELISSA [facility], [address], [address], , [address], 09/13/2023 16:34:57 behavio [facility] referra l 2023 024 MELISSA [facility], [address], [place], [address], 09/13/2023 16:41:35 neurolo gist referra l 2023 024 [facility] [place], [address] [facility] [place], [address], 05/08/2024 10:55:43 Procedures None recorde d. Surgeries None recorde d. Imaging electro cardiog bartolome 2023 [facility]24 [facility] Scheduling, [address] [facility] [place], [address], 07/20/2023 10:25:21 Medication Orders propran olol ER 60 mg capsule ,24 hr,exte nded release 2023 024 [id number], [address] [place], [place], [id number], 07/07/2023 15:56:58 sumatri ptan 25 mg tablet 2023 024 [facility] [id number], [address] [place], [place], [id number], 07/06/2023 09:40:25 Patient TargetsNo targets recorded. Patient Instructions Encounter Date Encounter Id Patient Instructions Last Modified By Organization Details Last Modified Time 10/12/2022 [id number] depression after childbirth: care instructions Not available 10/12/2022 12:02:08 stress in parent s of infants: care instructions Not available 10/12/2022 12:02:08 edinburgh depression scale* Not available 10/12/2022 12:02:08 07/06/2023 [id number] When You Want to Lose Weight: Care Instructions Not available 07/06/2023 09:36:55 Increase water intake to at least 8-10 8 oz glasses a day and decrease caffeine intake. Keep headache log/diary to track possible triggers and anything that brings relief. Not available 07/06/2023 09:48:22 follow up in 4 weeks Not available 07/06/2023 09:41:30 07/13/2023 [id number] A healthy lifestyle: care instructions essentia Not available 07/20/2023 00:03:05 fainting: care instructions [facility] Not available 07/13/2023 12:10:45 heart-healthy diet: care instructions essentia Not available 07/13/2023 12:09:57 learning about a closed head injury [email or web address] Not available 07/13/2023 12:10:07 To help your bra in heal after a concussion, you can: Rest your body Make sure to get plenty of sleep. Avoid heavy exercise or too much physical activity if it makes you feel worse. Rest your brain Avoid doing activities that need concentration or a lot of attention if they make you feel worse. Not drink alcohol while you are still having symptoms of concussion Take a pain-relieving medicine, if you have a headache You can choose one with acetaminophen (sample brand name: Tylenol) or ibuprofen (sample brand names: Advil, Motrin). [place] [id number] Not available 07/20/2023 00:02:01 Plan pending imaging results. f/u as needed DWP barriers to care: none [facility] Not available 07/20/2023 00:02:12 Reason for Referral Neurologist Referral for [facility] Encounter Date: 07/06/2023 Psychiatrist Referral for De pression screening Referring Physician: Nataly Webster [facility], Encounter Date: 07/06/2023 Behavioral Health Referral f or Depression screening Referring Physician: Nataly Webster [facility], Encounter Date: 07/06/2023 Results Created Date Observation Date Name Description Value Unit Range Abnormal Flag Note LastModifiedBy Organization Detail LastModifiedTime 08/29/19 23 08/30/2022 STREP GP B QASIM strep gp B QASIM Negati ve negati ve Cente rs for Disea se Contr ol and Preve ntion (CDC) and Ameri can Congr ess of Obste trici ans and Gynec ologi sts (ACOG ) guide lines for preve ntion of perin atal group B strep tococ светлана (GBS) disea se speci fy co-co llect ion of a vagin al and recta l swab speci men to maxim ize sensi tivit y of GBS detec tion. Per the CDC and ACOG, swabb ing both the lower vagin a and rectu m subst antia lly incre ases the yield of detec tion cara red with sampl ing the vagin a alone . Penic illin G, ampic illin , or cefaz lisa are indic ated for intra partu m proph ylaxi s of perin atal GBS colon izati on. Refle x susce ptibi lity testi ng shoul d be perfo rmed prior to use of clind amyci n only on GBS isola walter from penic illin -latonya rgic women who are consi dered a high risk for anaph ylaxi s. Treat ment with vanco mycin witho ut addit ional testi ng is warra nted if resis tance to clind amyci n is noted . Not Available [facility] ([facility]) [address] [facility], [place], [address], 08/30/2022 16:08:55 08/29/1908/28/2022 urina lysis , dipst ick Protein Trace Not Available In-Office Order Internal Use Only DO Not Attach Compendium DO Not Attach Compendium, Do Not Delete/merge, 08/26/2022 14:30:57 08/29/1908/28/2022 urina lysis , dipst ick Glucose Negati ve Not Available In-Office Order Internal Use Only DO Not Attach Compendium DO Not Attach Compendium, Do Not Delete/merge, 08/26/2022 14:30:57 08/29/1908/28/2022 urina lysis , dipst ick Appearance Slight ly Cloudy Not Available In-Office Order Internal Use Only DO Not Attach Compendium DO Not Attach Compendium, Do Not Delete/merge, 08/26/2022 14:30:57 08/29/1908/28/2022 urina lysis , dipst ick Color Dark Yellow Not Available In-Office Order Internal Use Only DO Not Attach Compendium DO Not Attach Compendium, Do Not Delete/merge, 08/26/2023 14:30:57 09/15/19 23 09/14/2022 urina lysis , dipst ick Protein Negati ve Not Available In-Office Order Internal Use Only DO Not Attach Compendium DO Not Attach Compendium, Do Not Delete/merge, [id number] 09/14/2022 09:39:11 09/15/19 23 09/14/2022 urina lysis , dipst ick Glucose Negati ve Not Available In-Office Order Internal Use Only DO Not Attach Compendium DO Not Attach Compendium, Do Not Delete/merge, [id number] 09/14/2022 09:39:11 09/23/19 23 09/22/2022 urina lysis , dipst ick Protein Trace Not Available In-Office Order Internal Use Only DO Not Attach Compendium DO Not Attach Compendium, Do Not Delete/merge, [id number] 09/17/2022 14:35:25 09/23/19 23 09/22/2022 urina lysis , dipst ick Glucose Negati ve Not Available In-Office Order Internal Use Only DO Not Attach Compendium DO Not Attach Compendium, Do Not Delete/merge, [id number] 09/17/2022 14:35:25 10/13/19 23 10/12/2022 edinb urgh postn atal depre ssion scale * Score 4 Not Available In-Office Order Internal Use Only DO Not Attach Compendium DO Not Attach Compendium, Do Not Delete/merge, 10/12/2022 11:48:03 07/06/19 24 07/07/2023 LIPID PANEL cholesterol, total 140 mg/dL 100-19 9 Not Available [facility] ([facility]) [address] [facility], [place], [address], 07/07/2023 04:08:59 07/06/19 24 07/07/2023 LIPID PANEL triglyceride s 121 mg/dL 0-149 Not Available [facility] ([facility]) [address] [facility], [place], [address], 07/07/2023 04:08:59 07/06/19 24 07/07/2023 LIPID PANEL HDL cholesterol 57 mg/dL >39 Not Available [facility]) [address] [facility] [place], [address], 07/07/2023 04:08:59 07/06/19 24 07/07/2023 LIPID PANEL VLDL cholesterol светлана 21 mg/dL 5-40 Not Available [facility] ([facility]) [address] [facility] [place], [address], 07/07/2023 04:08:59 07/06/19 24 07/07/2023 LIPID PANEL LDL chol calc ([facility]) 62 mg/dL 0-99 Not Available [facility] ([facility]) [address] [facility] [place], [address], 07/07/2023 04:08:59 07/06/19 24 07/07/2023 COMP. METAB OLIC PANEL (14) glucose 95 mg/dL 70-99 Not Available [facility] ([facility]) [address] [place], [address], 07/07/2023 04:09:00 07/06/19 24 07/07/2023 COMP. METAB OLIC PANEL (14) BUN 8 mg/dL 6-20 Not Available [facility] ([facility]) [address] [place], [address], 07/07/2023 04:09:00 07/06/19 24 07/07/2023 COMP. METAB OLIC PANEL (14) creatinine 0.65 mg/dL 0.57-1 .00 Not Available [facility] ([facility]) [address] [place], [address], 07/07/2023 04:09:00 07/06/19 24 07/07/2023 COMP. METAB OLIC PANEL (14) eGFR 128 mL/mi n/1.7 3 >59 Not Available [facility] ([facility]) [address] [place], [address], 07/07/2023 04:09:00 07/06/19 24 07/07/2023 COMP. METAB OLIC PANEL (14) BUN/creatini ne ratio 12 9-23 Not Available [facility] ([facility]) [address] [facility] [place], [address], 07/07/2023 04:09:00 07/06/19 24 07/07/2023 COMP. METAB OLIC PANEL (14) sodium 142 mmol/ L 134-14 4 Not Available [facility] ([facility]) [address] [facility] [place], [address], 07/07/2023 04:09:00 07/06/19 24 07/07/2023 COMP. METAB OLIC PANEL (14) potassium 4.5 mmol/ L 3.5-5. 2 Not Available [facility] ([facility]) [address] [facility] [place], [address], 07/07/2023 04:09:00 07/06/19 24 07/07/2023 COMP. METAB OLIC PANEL (14) chloride 104 mmol/ L 96-106 Not Available [facility] ([facility]) [address] [place], [address], 07/07/2023 04:09:00 07/06/19 24 07/07/2023 COMP. METAB OLIC PANEL (14) carbon dioxide, total 23 mmol/ L 20-29 Not Available [facility] ([facility]) [address] [place], [address], 07/07/2023 04:09:00 07/06/19 24 07/07/2023 COMP. METAB OLIC PANEL (14) calcium 9.5 mg/dL 8.7-10 .2 Not Available [facility] ([facility]) [address] [place], [address], 07/07/2023 04:09:00 07/06/19 24 07/07/2023 COMP. METAB OLIC PANEL (14) protein, total 7.2 g/dL 6.0-8. 5 Not Available [facility] ([facility]) [address] [place], [address], 07/07/2023 04:09:00 07/06/19 24 07/07/2023 COMP. METAB OLIC PANEL (14) albumin 4.5 g/dL 4.0-5. 0 Not Available [facility] ([facility]) [address], [place], [address], 07/07/2023 04:09:00 07/06/19 24 07/07/2023 COMP. METAB OLIC PANEL (14) globulin, total 2.7 g/dL 1.5-4. 5 Not Available [facility] ([facility]) [address], [place], [address], 07/07/2023 04:09:00 07/06/19 24 07/07/2023 COMP. METAB OLIC PANEL (14) A/G ratio 1.7 1.2-2. 2 Not Available [facility] ([facility]) [address] [place], [address], 07/07/2023 04:09:00 07/06/19 24 07/07/2023 COMP. METAB OLIC PANEL (14) bilirubin, total <0.2 mg/dL 0.0-1. 2 Not Available [facility] ([facility]) [address] [facility], [place], [address], 07/07/2023 04:09:00 07/06/19 24 07/07/2023 COMP. METAB OLIC PANEL (14) alkaline phosphatase 111 IU/L 44-121 Not Available [facility] ([facility]) [address] [place], [address], 07/07/2023 04:09:00 07/06/19 24 07/07/2023 COMP. METAB OLIC PANEL (14) AST (SGOT) 21 IU/L 0-40 Not Available [facility] ([facility]) [address] [facility], [place], [address], 07/07/2023 04:09:00 07/06/19 24 07/07/2023 COMP. METAB OLIC PANEL (14) ALT (SGPT) 21 IU/L 0-32 Not Available [facility] ([facility]) [address] [facility], [place], [address], 07/07/2023 04:09:00 07/06/19 24 07/07/2023 TSH RFX ON ABNOR MAL TO FREE T4 TSH 1.880 uIU/m L 0.450- 4.500 Not Available [facility] ([facility]) [address], [place], [address], 07/07/2023 04:09:00 07/06/19 24 07/07/2023 VITAM IN B12 AND FOLAT E vitamin B12 817 pg/mL 232-12 45 Not Available [facility] ([facility]) [address] [facility], [place], [address], 07/07/2023 04:09:01 07/06/19 24 07/07/2023 VITAM IN B12 AND FOLAT E folate (folic acid), serum 10.8 NG/mL >3.0 A serum folat e eh ntrat ion of less than 3.1 ng/mL is consi dered to repre sent clini светлана defic iency . Not Available [facility] ([facility]) [address], [place], [address], 07/07/2023 04:09:01 07/06/19 24 07/07/2023 MAGNE SIUM magnesium 1.9 mg/dL 1.6-2. 3 Not Available [facility] ([facility]) [address] [place], [address], 07/07/2023 04:09:02 07/06/19 24 07/06/2023 CBC, NO DIFFE RENTI AL/PL ATELE T WBC 5.6 x10e3 /uL 3.4-10 .8 Not Available [facility] ([facility]) [address] [place], [address], 07/07/2023 04:09:03 07/06/19 24 07/06/2023 CBC, NO DIFFE RENTI AL/PL ATELE T RBC 4.68 x10e6 /uL 3.77-5 .28 Not Available [facility] ([facility]) [address], [place], [address], 07/07/2023 04:09:03 07/06/19 24 07/06/2023 CBC, NO DIFFE RENTI AL/PL ATELE T hemoglobin 13.7 g/dL 11.1-1 5.9 Not Available [facility] ([facility]) [address] [place], [address], 07/07/2023 04:09:03 07/06/19 24 07/06/2023 CBC, NO DIFFE RENTI AL/PL ATELE T hematocrit 40.6 % 34.0-4 6.6 Not Available [facility] ([facility]) [address] [place], [address], 07/07/2023 04:09:03 07/06/19 24 07/06/2023 CBC, NO DIFFE RENTI AL/PL ATELE T MCV 87 fL 79-97 Not Available [facility] ([facility]) [address] [place], [address], 07/07/2023 04:09:03 07/06/19 24 07/06/2023 CBC, NO DIFFE RENTI AL/PL ATELE T MCH 29.3 pg 26.6-3 3.0 Not Available [facility] ([facility]) [address] [place], [address], 07/07/2023 04:09:03 07/06/19 24 07/06/2023 CBC, NO DIFFE RENTI AL/PL ATELE T MCHC 33.7 g/dL 31.5-3 5.7 Not Available [facility] ([facility]) [address], [place], [address], 07/07/2023 04:09:03 07/06/19 24 07/06/2023 CBC, NO DIFFE RENTI AL/PL ATELE T RDW 13.5 % 11.7-1 5.4 Not Available [facility] ([facility]) [address], [place], [address], 07/07/2023 04:09:03 06/05/19 25 06/04/2024 CBC W Auto Diffe renti al panel - Blood leukocytes [#/volume] in blood by automated count 6.41 text: 4.00 - 12.00 10(3)/ mcL WBC 6.41 4.00 - 12.00 10(3) /mcL 06/03 11:07 PM 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 RADIAL [facility] Not Available Not Available 06/14/2024 08:19:34 06/05/19 25 06/04/2024 CBC W Auto Diffe renti al panel - Blood erythrocytes [#/volume] in blood by automated count 4.43 text: 3.80 - 5.30 10(6)/ mcL RBC 4.43 3.80 - 5.30 10(6) /mcL 06/03 11:07 PM 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 [facility] Not Available Not Available 06/14/2024 08:19:34 06/05/19 25 06/04/2024 CBC W Auto Diffe renti al panel - Blood hemoglobin [mass/volume ] in blood 11.5 g/dL low: 12g/dL high: 15.8g/ dL low HEMOG LOBIN (HGB) 11.5 (L) 12.0 - 15.8 g/dL 06/03 11:07 PM 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 [facility] Not Available Not Available 06/14/2024 08:19:34 06/05/19 06/04/2024 CBC W Auto Diffe renti al panel - Blood hematocrit [volume fraction] of blood by automated count 35.4 % low: 36%hig h: 47% low HEMAT OCRIT (HCT) 35.4 (L) 36.0 - 47.0 % 06/03 11:07 PM [facility] Not Available Not Available 06/14/2024 08:19:34 06/05/1906/04/2024 CBC W Auto Diffe renti al panel - Blood MCV [entitic volume] by automated count 79.9 fL low: 82fLhi gh: 96fL low MCV 79.9 (L) 82.0 - 96.0 fL 06/03 11:07 PM [facility] Not Available Not Available 06/14/2024 08:19:34 06/05/19 25 06/04/2024 CBC W Auto Diffe renti al panel - Blood MCH [entitic mass] by automated count 26 pg low: 26pghi gh: 34pg MCH 26.0 26.0 - 34.0 pg 06/03 11:07 PM [facility] Not Available Not Available 06/14/2024 08:19:34 06/05/1906/04/2024 CBC W Auto Diffe renti al panel - Blood MCHC [mass/volume ] by automated count 32.5 g/dL low: 31g/dL high: 36g/dL MCHC 32.5 31.0 - 36.0 g/dL 06/03 11:07 PM [facility] Not Available Not Available 06/14/2024 08:19:34 06/05/19 25 06/04/2024 CBC W Auto Diffe renti al panel - Blood platelets [#/volume] in blood 261 text: 140 - 440 10(3)/ mcL PLATE LET COUNT 261 140 - 440 10(3) /mcL 06/03 11:07 PM [facility] Not Available Not Available 06/14/2024 08:19:34 06/05/19 25 06/04/2024 CBC W Auto Diffe renti al panel - Blood erythrocyte distribution width [ratio] by automated count 14.4 % low: 11.8%h igh: 15.5% RDW 14.4 11.8 - 15.5 % 06/03 11:07 PM 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 [facility] Not Available Not Available 06/14/2024 08:19:34 06/05/19 25 06/04/2024 CBC W Auto Diffe renti al panel - Blood platelet mean volume [entitic volume] in blood by automated count 9 fL low: 9.7fLh igh: 12.4fL low MPV 9.0 (L) 9.7 - 12.4 fL 06/03 11:07 PM 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 [facility] Not Available Not Available 06/14/2024 08:19:34 06/05/19 25 06/04/2024 CBC W Auto Diffe renti al panel - Blood neutrophils/ 100 leukocytes in blood by automated count 52.1 % low: 47%hig h: 73% NEUTR OPHIL S 52.1 47.0 - 73.0 % 06/03 11:07 PM 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 [facility] Not Available Not Available 06/14/2024 08:19:34 06/05/19 25 06/04/2024 CBC W Auto Diffe renti al panel - Blood lymphocytes/ 100 leukocytes in blood by automated count 34.2 % low: 18%hig h: 42% LYMPH OCYTE S 34.2 18.0 - 42.0 % 06/03 11:07 PM 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 [facility] Not Available Not Available 06/14/2024 08:19:34 06/05/19 25 06/04/2024 CBC W Auto Diffe renti al panel - Blood monocytes/10 0 leukocytes in blood by automated count 8.3 % low: 4%high : 12% MONOC YTES 8.3 4.0 - 12.0 % 06/03 11:07 PM 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 [facility] Not Available Not Available 06/14/2024 08:19:34 06/05/19 25 06/04/2024 CBC W Auto Diffe renti al panel - Blood eosinophils/ 100 leukocytes in blood by automated count 4.8 % low: 0%high : 5% EOSIN OPHIL S 4.8 0.0 - 5.0 % 06/03 11:07 PM 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 [facility] Not Available Not Available 06/14/2024 08:19:34 06/05/19 25 06/04/2024 CBC W Auto Diffe renti al panel - Blood basophils/10 0 leukocytes in blood by automated count 0.6 % low: 0%high : 1% BASOP HILS 0.6 0.0 - 1.0 % 06/03 11:07 PM 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 [facility] Not Available Not Available 06/14/2024 08:19:34 06/05/19 25 06/04/2024 CBC W Auto Diffe renti al panel - Blood neutrophils [#/volume] in blood by automated count 3.34 text: 1.60 - 7.70 10(3)/ mcL ABSOL NULATO NEUTR OPHIL S 3.34 1.60 - 7.70 10(3) /mcL 06/03 11:07 PM 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 [facility] Not Available Not Available 06/14/2024 08:19:34 06/05/19 25 06/04/2024 CBC W Auto Diffe renti al panel - Blood lymphocytes [#/volume] in blood by automated count 2.19 text: 1.30 - 3.20 10(3)/ mcL ABSOL NULATO LYMPH OCYTE S 2.19 1.30 - 3.20 10(3) /mcL 06/03 11:07 PM 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 [facility] Not Available Not Available 06/14/2024 08:19:34 06/05/19 25 06/04/2024 CBC W Auto Diffe renti al panel - Blood monocytes [#/volume] in blood by automated count 0.53 text: 0.20 - 1.00 10(3)/ mcL ABSOL NULATO MONOC YTES 0.53 0.20 - 1.00 10(3) /mcL 06/03 11:07 PM 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 [facility] Not Available Not Available 06/14/2024 08:19:34 06/05/19 25 06/04/2024 CBC W Auto Diffe renti al panel - Blood eosinophils [#/volume] in blood by automated count 0.31 text: 0.00 - 0.40 10(3)/ mcL ABSOL NULATO EOSIN OPHIL 0.31 0.00 - 0.40 10(3) /mcL 06/03 11:07 PM 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 [facility] Not Available Not Available 06/14/2024 08:19:34 06/05/19 25 06/04/2024 CBC W Auto Diffe renti al panel - Blood basophils [#/volume] in blood by automated count 0.04 text: 0.00 - 0.10 10(3)/ mcL ABSOL NULATO BASOP HILS 0.04 0.00 - 0.10 10(3) /mcL 06/03 11:07 PM 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 [facility] R LAB Not Available Not Available 06/14/2024 08:19:34 06/05/19 25 06/04/2024 CBC W Auto Diffe renti al panel - Blood nucleated erythrocytes /100 leukocytes [ratio] in blood 0 NRBC PER 100 WBC 0 06/03 11:07 PM [facility] R LAB Not Available Not Available 06/14/2024 08:19:34 06/05/19 25 06/04/2024 CBC W Auto Diffe renti al panel - Blood interpretati on and review of laboratory results Abnorm al Not Available Not Available 08:19:34 06/05/19 25 06/04/2024 Chori ogona dotro pin (preg anival test) [Pres ence] in Serum or Plasm a choriogonado tropin ( test) [presence] in serum or plasma Negati ve PREG- HCG Negat joselyn 06/03 11:18 PM [facility] R [facility] Not Available Not Available 06/14/2024 08:19:34 06/05/19 25 06/04/2024 Lipas e [Enzy matic activ ity/v olume ] in Serum or Plasm a lipase [enzymatic activity/vol ume] in serum or plasma 16 U/L low: 8U/Lhi gh: 78U/L LIPAS E 16 8 - 78 U/L 06/03 11:23 PM 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 [facility] Not Available Not Available 06/14/2024 08:19:34 06/05/1906/04/2024 Lipas e [Enzy matic activ ity/v olume ] in Serum or Plasm a interpretati on and review of laboratory results Normal Not Available Not Available 06/03 08:19:34 06/05/19 25 06/04/2024 Compr ehens joselyn metab olic 1999 panel - Serum or Plasm a sodium [moles/volum e] in serum or plasma 142 mmol/ L low: 136mmo l/Lhig h: 145mmo l/L SODIU M 142 136 - 145 mmol/ L 06/03 11:23 PM 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 RADIAL [facility] TeamVisibilityE R LAB Not Available Not Available 06/14/2024 08:19:34 06/05/19 25 06/04/2024 Compr ehens joselyn metab olic 1999 panel - Serum or Plasm a potassium [moles/volum e] in serum or plasma 3.4 mmol/ L low: 3.5mmo l/Lhig h: 5.1mmo l/L low POTAS SIUM 3.4 (L) 3.5 - 5.1 mmol/ L 06/03 11:23 PM 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 [facility] CENT[facility] LAB Not Available Not Available 06/14/2024 08:19:34 06/05/19 25 06/04/2024 Compr ehens joselyn metab olic 1999 panel - Serum or Plasm a chloride [moles/volum e] in serum or plasma 110 mmol/ L low: 98mmol /Lhigh : 107mmo l/L high CHLOR PATTY 110 (H) 98 - 107 mmol/ L 06/03 11:23 PM 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 [facility] LAB Not Available Not Available 06/14/2024 08:19:34 06/05/19 25 06/04/2024 Compr ehens joselyn metab olic 1999 panel - Serum or Plasm a carbon dioxide, total [moles/volum e] in serum or plasma 21 mmol/ L low: 22mmol /Lhigh : 30mmol /L low CO2, VENOU S 21 (L) 22 - 30 mmol/ L 06/03 11:23 PM 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 [facility] [employer] C[facility] LAB Not Available Not Available 06/14/2024 08:19:34 06/05/19 25 06/04/2024 Compr ehens joselyn metab olic 2000 panel - Serum or Plasm a anion gap in serum or plasma 14.4 mmol/ L high: 18mmol /L ANION GAP 14.4 <18.0 mmol/ L 06/03 11:23 PM 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 [facility] Not Available Not Available 06/14/2024 08:19:34 06/05/19 25 06/04/2024 Compr ehens joselyn metab olic 2000 panel - Serum or Plasm a glucose [mass/volume ] in serum or plasma 114 mg/dL low: 70mg/d Lhigh: 99mg/d L high GLUCO SE 114 (H) 70 - 99 mg/dL 06/03 11:23 PM 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 [facility] C[facility] LAB Not Available Not Available 06/14/2024 08:19:34 06/05/19 25 06/04/2024 Compr ehens joselyn metab olic 2000 panel - Serum or Plasm a urea nitrogen [mass/volume ] in serum or plasma 10 mg/dL low: 5mg/dL high: 18mg/d L BUN 10 5 - 18 mg/dL 06/03 11:23 PM 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 [facility] [employer] H CENTE R LAB Not Available Not Available 06/14/2024 08:19:34 06/05/19 25 06/04/2024 Compr ehens joselyn metab olic 2000 panel - Serum or Plasm a creatinine [mass/volume ] in serum or plasma 0.94 mg/dL low: 0.6mg/ dLhigh : 1mg/dL CREAT ININE , BLOOD 0.94 0.60 - 1.00 mg/dL 06/03 11:23 PM 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 [facility] R LAB Not Available Not Available 06/14/2024 08:19:34 06/05/19 25 06/04/2024 Compr ehens joselyn metab olic 2000 panel - Serum or Plasm a urea nitrogen/cre atinine [mass ratio] in serum or plasma 11 text: 12 - 20 ratio low BUN/C REATI NINE RATIO 11 (L) 12 - 20 ratio 06/03 11:23 PM 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 [facility] R LAB Not Available Not Available 06/14/2024 08:19:34 06/05/19 25 06/04/2024 Compr ehens joselyn metab olic 1999 panel - Serum or Plasm a protein [mass/volume ] in serum or plasma 7.1 g/dL low: 6g/dLh igh: 8g/dL TOTAL PROTE IN 7.1 6.0 - 8.0 g/dL 06/03 11:23 PM [facility] TeamVisibility[facility] R LAB Not Available Not Available 06/14/2024 08:19:34 06/05/19 25 06/04/2024 Compr ehens joselyn metab olic 2000 panel - Serum or Plasm a albumin [mass/volume ] in serum or plasma 4.2 g/dL low: 3.5g/d Lhigh: 5g/dL ALBUM IN 4.2 3.5 - 5.0 g/dL 06/03 11:23 PM [facility] TeamVisibilityE R LAB Not Available Not Available 06/14/2024 08:19:34 06/05/19 25 06/04/2024 Compr ehens joselyn metab olic 2000 panel - Serum or Plasm a albumin/glob ulin [mass ratio] in serum or plasma 1.4 low: 1high: 2.2 A/G RATIO 1.4 1.0 - 2.2 06/03 11:23 PM [facility] R LAB Not Available Not Available 06/14/2024 08:19:34 06/05/19 25 06/04/2024 Compr ehens joselyn metab olic 2000 panel - Serum or Plasm a calcium [mass/volume ] in serum or plasma 9.1 mg/dL low: 8.7mg/ dLhigh : 10.5mg /dL CALCI UM 9.1 8.7 - 10.5 mg/dL 06/03 11:23 PM 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 [facility] Not Available Not Available 06/14/2024 08:19:34 06/05/19 25 06/04/2024 Compr ehens joselyn metab olic 1999 panel - Serum or Plasm a bilirubin.to leonora [mass/volume ] in serum or plasma 0.3 mg/dL low: 0.2mg/ dLhigh : 1.2mg/ dL T BILI 0.3 0.2 - 1.2 mg/dL 06/03 11:23 PM [facility]VisibilityE R LAB Not Available Not Available 06/14/2024 08:19:34 06/05/1906/04/2024 Compr ehens joselyn metab olic 2000 panel - Serum or Plasm a aspartate aminotransfe rase [enzymatic activity/vol ume] in serum or plasma 29 U/L high: 43U/L SGOT (AST) 29 <43 U/L 06/03 11:23 PM [facility]Visibility[facility] R LAB Not Available Not Available 06/14/2024 08:19:34 06/05/1906/04/2024 Compr ehens joselyn metab olic 2000 panel - Serum or Plasm a alanine aminotransfe rase [enzymatic activity/vol ume] in serum or plasma 21 U/L high: 56U/L SGPT (ALT) 21 <56 U/L 06/03 11:23 PM [facility]Visibility[facility] R LAB Not Available Not Available 06/14/2024 08:19:34 06/05/19 25 06/04/2024 Compr ehens joselyn metab olic 2000 panel - Serum or Plasm a alkaline phosphatase [enzymatic activity/vol ume] in serum or plasma 64 U/L low: 40U/Lh igh: 150U/L ALKAL INE PHOSP HATAS E 64 40 - 150 U/L 06/03 11:23 PM [facility] Not Available Not Available 06/14/2024 08:19:34 06/05/19 25 06/04/2024 Compr ehens joselyn metab olic 2000 panel - Serum or Plasm a glomerular filtration rate/1.73 sq M.predicted among non-blacks [volume rate/area] in serum, plasma or blood by creatinine-b ased formula (MDRD) low: 60 GFR, ESTIM ATED >60 >=60 06/03 11:23 PM 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 [place] [facility] Scheduling [address] [facility] , [place], [address], 08/24/2022 14:08:19 07/20/19 24 07/20/2023 elect rocar diogr am No observ ation record ed. [facility] (Cardiology) 1 [facility] [place], [address], 07/20/2023 14:55:12 07/20/19 24 07/20/2023 elect rocar diogr am No observ ation record ed. [facility] (Cardiology) 1 [facility] [place], [address], 07/21/2023 09:11:25 08/27/19 24 08/17/2023 darline r monit or No observ ation record ed. [facility] [address] [facility] [place], [address], 08/31/2023 10:56:50 Result Notes None recorded. Problems Name Problem SNOMED Code Status Onset Date Resolution Date Notes Provider Name and Address Organization Details Recorded Time 53092522 Completed 202011/18/2020 Jaye Casey RMA null, [place] - [facility] 3 11:42:00 Seasonal allergic rhinitis 419173298 Active 2021 Jaye Casey RMFabiola [place], [place] [facility] 3 11:32:32 53115991 Completed 202210/12/2022 ARIANNA Schulz [place], [place] [facility] 3 11:42:00 Migraine 54219162 Active 2023 Nataly Webster APN, FNP-C Attn: Accounting ,[address] [place], [address] , [place] [facility] 4 09:25:46 Hypertensi ve disorder 37235790 Active 2023 Nataly Webster APN, FNP-C Attn: Accounting ,[address] [place], [address] , [place] [facility] 4 09:41:30 Obesity 878613474 Active ARIANNA Schulz null, [place] [facility] 3 11:32:32 Tinea corporis 50020961 Completed 02/15/2020 Nataly Webster APN VERIFICATION SPECIALIST-C Attn: Accounting ,[address] [facility], [place], [place], [address] [place] [address] , [facility] 0 14:21:26 Hand eczema 985341933 Completed 02/15/2020 Nataly Webster APN, VERIFICATION SPECIALIST-C Attn: Accounting ,[address] [facility], [place], [place], [address] [place] [address] , [facility] 0 14:21:37 Irregular periods 85930352 Completed 12/12/2021 Nataly Webster APN, VERIFICATION SPECIALIST-C Attn: Accounting ,[address] [facility], [place], [place], [address] [place] [address] , [facility] 2 11:29:30 Cyst of ovary 01524365 Active ARIANNA Schulz null, [facility] 3 11:32:32 Tight chest 03032498 Completed 02/15/2020 Nataly Webster APN, VERIFICATION SPECIALIST-C Attn: Accounting ,[address] [facility], [place], [place], [address] [place] [address] , [facility] 0 14:21:17 Upper respirator y infection 32308343 Completed 02/15/2020 Natalynavi Webster APN, VERIFICATION SPECIALIST-C Attn: Accounting ,[address] [facility], [place], [place], [address] [place] [address] , [facility] 0 14:18:10 Problem Notes None recorded. Procedures Surgical History Date Name Laterality Status Provider Name and Address Organization Details Recorded Time 06/24/2022 Date of Last Pap Smear completed ARIANNA Schulz [facility] 09/14/2022 11:29:29 tonsilecto my/adenoid s completed Emili Hughes MA [facility] 02/15/2020 14:03:30 Imaging Results Imaging Date Name Status LastModified by Organization Details LastModified Time 08/23/2022 US, obstetric, follow-up completed [place] [facility] Scheduling [address], [place], [address], 08/24/2022 14:08:19 07/20/2023 electrocardiogram completed [facility] (Cardiology) 1 [facility] [place], [address], 07/20/2023 14:55:12 07/20/2023 electrocardiogram completed [facility] (Cardiology) 1 [facility] [place], [address], 07/21/2023 09:11:25 08/17/2023 holter monitor completed [address] [place], [address], 08/31/2023 10:56:50 Procedure Notes None recorded. Medical Equipment None Reported. Allergies No known drug allergies Medications Name Sig Start Date Stop Date Status Note LastModified by Organization Details LastModified Time amoxicillin 500 mg capsule TAKE 1 CAPSULE BY MOUTH EVERY 8 HOURS FOR 7 DAYS 12/12 completed Not Available Not Available Not Available montelukast 5 mg chewable tablet 02/14 completed Not Available Not Available Not Available labetalol 200 mg tablet 400 mg twice a day by oral route. 11/09 completed Not Available Not Available Not Available hydrocodone 5 mg-acetamin ophen 325 mg tablet TAKE 1 TABLET BY MOUTH EVERY 4 HOURS NEEDED FOR PAIN 06/12 completed Not Available Not Available Not Available prochlorper azine maleate 5 mg tablet TAKE 1-2 TABLETS BY MOUTH EVERY 6 HOURS NEEDED FOR NAUSEA FOR UP TO 15 DAYS active Not Available Not Available No t Available sumatriptan 25 mg tablet TAKE 1 TABLET BY MOUTH AT ONSET OF MIGRAINE. MAY REPEAT DOSE IN 2 HOURS IF NOT IMPROVED active Not Available Not Available No t Available ondansetron HCl 4 mg tablet TAKE 1-2 TABLETS BY MOUTH EVERY 8 HOURS NEEDED FOR NAUSEA FOR UP TO 15 DAYS active Not Available Not Available No t Available prednisone 20 mg tablet Take 2 tablets every day by oral route for 5 days. 12/21 completed Not Available Not Available Not Available propranolol ER 60 mg capsule,24 hr,extended release TAKE 1 CAPSULE BY MOUTH EVERY DAY 2023 active Not Available Not Available Not Avai lable topiramate 25 mg tablet 09/05 completed Not Available Not Available Not Available butalbital- acetaminoph en-caffeine 50 mg-325 mg-40 mg tablet Take 1 {tbl} by oral route. 05/01 completed Not Available Not Available Not Available propranolol 10 mg tablet 06/12 completed Not Available Not Available Not Available amitriptyli ne 25 mg tablet Take 1 tablet every day by oral route. 09/05 completed Not Available Not Available Not Available montelukast 10 mg tablet Take 1 tablet every day by oral route. 07/05 completed Not Available Not Available Not Available Lotrimin AF (clotrimazo le) 1 % topical cream Apply 1 applicati on twice a day by topical route. 04/27 completed Not Available Not Available Not Available ibuprofen 600 mg tablet TAKE 1 TABLET BY MOUTH EVERY 6 HOURS NEEDED FOR PAIN 07/05 completed Not Available Not Available Not Available hydrocortis one 2.5 % topical ointment Apply 1 applicati on twice a day by topical route. 06/17 completed Not Available Not Available Not Available ondansetron 4 mg disintegrat ing tablet active Not Available Not Available N ot Available fluticasone propionate 50 mcg/actuati on nasal spray,suspe nsion SHAKE LIQUID AND USE 1 SPRAY IN EACH NOSTRIL EVERY DAY 06/24 completed Not Available Not Available Not Available loratadine 10 mg tablet Take 1 tablet every day by oral route. 02/14 completed Not Available Not Available Not Available naproxen 500 mg tablet 06/12 completed Not Available Not Available Not Available Ortho Micronor 0.35 mg tablet Take 1 tablet every day by oral route. 06/12 completed Not Available Not Available Not Available nitrofurant oin monohydrate /macrocryst als 100 mg capsule 09/05 completed Not Available Not Available Not Available Flovent HFA 220 mcg/actuati on aerosol inhaler Inhale 1 puff twice a day by inhalatio n route. 02/14 completed Not Available Not Available Not Available ProAir HFA 90 mcg/actuati on aerosol inhaler Inhale 2 puffs every 4 hours by inhalatio n route as needed. 02/14 completed Not Available Not Available Not Available Nye-Linyah 0.25 mg-35 mcg tablet TAKE ONE TABLET BY MOUTH ONCE DAILY 09/05 completed Not Available Not Available Not Available Minastrin 24 Fe 1 mg-20 mcg (24)/75 mg (4) chewable tablet Chew 1 tablet by oral route for 28 days. 09/05 completed Not Available Not Available Not Available Vitals Date Recorded Body height Body mass index (BMI) Systolic blood pressure Diastolic blood pressure Provider Name and Address Organization Details Last Updated DateTime 09/14/2022 164.47 cm 43.3 kg/m2 131 mm[Hg] 89 mm[Hg] ARIANNA Schulz [place] - [facility] 09/14/2022 11:35:54 Date Recorded Body weight Provider Name an d Address Organization Details Last Updated DateTime 09/14/2022 440447.87213 g Yuri Stevens MD Attn: Accounting,[address] [place], [address], [place] - [facility] 09/14/2022 11:46:14 Date Recorded Body height Body mass index (BMI) Systolic blood pressure Diastolic blood pressure Provider Name and Address Organization Details Last Updated DateTime 09/22/2022 164.47 cm 43.9 kg/m2 125 mm[Hg] 81 mm[Hg] ARIANNA Schulz [place] - [facility] 09/22/2022 11:40:09 Date Recorded Body weight Provider Name an d Address Organization Details Last Updated DateTime 09/22/2022 983514.59211 g Yuri Stevens MD Attn: Accounting,[address] [place], [address], [place] - [facility] 09/22/2022 11:57:13 Date Recorded Body height Body mass index (BMI) Body weight Systolic blood pressure Diastolic blood pressure Provider Name and Address Organization Details Last Updated DateTime 10/12/2022 164.47 cm 40.4 kg/m2 969745.7 6 g 132 mm[Hg] 83 mm[Hg] ARIANNA Schulz [place] - [facility] 07/10/202 3 11:47:01 Date Recorded Body height Body mass index (BMI) Body weight Oxygen saturation Oxygen saturation in Arterial blood by Pulse oximetry Heart rate Respiratory rate Body temperature Systolic blood pressure Diastolic blood pressure Provider Name and Address Organization Details Last Updated DateTime 4 164.47 cm 39.7 kg/m2 260665. 39 g 99 % 99 % 92 /min 16 /min 97.5 [degF] 144 mm[Hg] 100 mm[Hg] Valarie Gaitan Fabiola [facility] 4 09:18:05 Date Recorded Systolic blood pressure Diastolic blood pressure Provider Name and Address Organization Details Last Updated DateTime 07/06/2023 136 mm[Hg] 82 mm[Hg] Nataly Webster APN, FNP-C Attn: Accounting,[address] [place], [address], [facility] 07/06/2023 09:33:22 Date Recorded Body height Body mass index (BMI) Body weight Oxygen saturation Oxygen saturation in Arterial blood by Pulse oximetry Heart rate Respiratory rate Body temperature Systolic blood pressure Diastolic blood pressure Provider Name and Address Organization Details Last Updated DateTime 4 164.47 cm 39.7 kg/m2 099361. 39 g 96 % 96 % 80 /min 16 /min 98.6 [degF] 144 mm[Hg] 100 mm[Hg] Valarie Gaitan Fabiola [facility] 4 11:42:07 Date Recorded Systolic blood pressure Diastolic blood pressure Provider Name and Address Organization Details Last Updated DateTime 07/13/2023 126 mm[Hg] 88 mm[Hg] Nataly Webster APN, FNP-C Attn: Accounting,[address] [place], [address], [facility] 07/13/2023 12:09:15 Social History Question Answer Notes LastModified by Organizat ion Details LastModified Time Tobacco Smoking Status Never Smoker LUIS MIGUEL Rao, [facility] 11/16/2014 16:39:48 Do You Have An Advance Directive? No Information not available 02/15/2020 What Is Your Level Of Alcohol Consumption? Occasional [email or web address] Information not available 12/12/2021 Animal Exposure? Yes Informat ion not available 11/16/2014 Do You Wear A Helmet When Biking? No Information not available 11/16/2014 Are You Blind Or Do You Have Difficulty Seeing? No [email or web address] Information not available 06/12/2021 Is Blood Transfusion Acceptable In An Emergency? Yes Information not available 05/01/2020 Are You Or Have You Been Involved With Bullying? No Information not available 11/16/2014 What Is Your Level Of Caffeine Consumption? Moderate [email or web address] Information not available 12/12/2021 How Much Tobacco Do You Chew? None Information not available 02/15/2020 What Type Of Latex Fashions Designer Do You Use? None Information not available 11/16/2014 In The 14 Days Before Symptom Onset, Have You Had Close Contact With A Laboratory-confir med COVID-19 While That Case Was Ill? No Information not available 02/15/2020 In The 14 Days Before Symptom Onset, Have You Had Close Contact With A Person Who Is Under Investigation For COVID-19 While That Person Was Ill? No Information not available 02/15/2020 Have You Been To An Area Known To Be High Risk For COVID-19? No Information not available 02/15/2020 Are You Currently Employed? Yes [email or web address] Information not available 12/12/2021 Are You Deaf Or Do You Have Serious Difficulty Hearing? No [email or web address] Information not available 06/12/2021 What Type Of Diet Are You Following? REGULAR Information not available 07/06/2023 Which Illicit Or Recreational Drugs Have You Used? Declined Information not available 02/15/2020 Do You Or Have You Ever Used E-cigarettes Or Vape? Never Used Electronic Cigarettes Information not available 02/15/2020 What Is Your Occupation? [employer] Information not available 07/06/2023 Have There Been Any Changes To Your Family Or Social Situation? No Information no t available 11/16/2014 Are There Any Guns Present In Your Home? No Information not available 11/16/2014 Hard Of Hearing Or Deaf In One Or Both Ears? No Information not available 02/15/2020 What Is Your Home Situation? Both Parents Information not available 11/16/2014 Do You Use Insect Repellent Routinely? Yes Information not available 11/16/2014 Legally Blind In One Or Both Eyes? No Information no t available 02/15/2020 Marital Status Single Informatio n not available 02/15/2020 What Was The Date Of Your Most Recent Tobacco Screening? 07/13/2023 Information not available 07/13/2023 How Many Children Do You Have? 2 Information not available 07/06/2023 What Is Your Parents' Marital Status? Information not available 11/16/2014 Performs Monthly Self-breast Exam? No Information no t available 02/15/2020 Pool Exposure No Information not available 11/16/2014 Do You Use Protection During Sex? No Information not available 05/01/2020 What Is The Name Of Your School? [employer] Information not available 11/16/2014 Do You Use Your Seat Belt Or Car Seat Routinely? Yes [email or web address] Information not available 06/12/2021 Seat Belts Used Routinely Yes Information not available 02/15/2020 Are You Sexually Active? Yes Information not available 05/01/2020 Do You Have Any Siblings? 3 Brothers 6 Sisters Information not available 11/16/2014 Smoke Alarm In Home No Information not available 02/15/2020 Do You Have Smoke And Carbon Monoxide Detectors In Your Home? Yes Information not available 11/16/2014 Are You Passively Exposed To Smoke? No Information no t available 11/16/2014 Do You Or Have You Ever Used Smokeless Tobacco? Never Used Smokeless Tobacco Information not available 02/15/2020 How Much Tobacco Do You Smoke? No Information not available 02/15/2020 What Types Of Sporting Activities Do You Participate In? Softball [email or web address] Information not available 06/17/2016 General Stress Level Low Information not available 02/15/2020 Do You Feel Stressed (tense, Restless, Nervous, Or Anxious, Or Unable To Sleep At Night)? [id number] Information not available 07/06/2023 Do You Use Any Illicit Or Recreational Drugs? Yes Cbd Gummies Information not available 07/06/2023 Do You Use Sunscreen Routinely? Yes Information not available 11/16/2014 Has Tobacco Cessation Counseling Been Provided? No Information not available 10/14/2020 Year In School 11 [email or web address] Informati on not available 02/01/2017 Do You Or Have You Ever Used Any Other Forms Of Tobacco Or Nicotine? No Information not available 10/14/2020 Sex: Female Functional Status Question Answer Note LastModified by Organizat ion Details LastModified Time Are you able to care for yourself? Yes [email or web address] Information not available 06/12/2021 What is your exercise level? Occasional Information not available 02/15/2020 Mental Status None recorded. Family History Relationship Description Onset Age of this Age Resolved Age Notes LastModified by Organization Details LastModified Time Maternal Grandmother Cerebrovascu lar accident [email or web address] Not available 10/2014 14:43:36 Father No current problems or disability Not available 07/05 09:26:41 Mother No current problems or disability Not available 07/05 09:26:41 Notes:no breast ca hx, pt st ates that are biological fathers side she believes there was heart issues Medical History Condition Response Coronary Artery Disease N Other N Atrial Fibrillation N High Blood Pressure N Blood Diseases N Depression N COPD N Blood Clots N Developmental or Behavioral Disorders N Premature N Anxiety Disorder N Muscle, Joint, or Bone Problems N Vision or Eye Problems N Head Injury/Concussion N Acid Reflux (GERD) N Cancer N Stroke N ADHD N Bladder or Kidney Problems N High Cholesterol N Liver Disease N Schizophrenia N Headaches Y Ear or Hearing Problems N Thyroid Problems N Kidney or Bladder Problems N GI Problems N Eating Disorder N Skin Problems N Anemia N Constipation N Heart Attack (RI) N Diabetes N Bedwetting N Heart Problems/Murmur N Seizures/Epilepsy N Asthma N Allergies Y Substance Abuse N Hepatitis N Chicken Pox N Heart Failure N Autism Spectrum Disorder (ASD) N Osteoporosis N Gynecological History Statement/Question Response Flow Moderate Date of LMP 07/06/2023 Sexually Active? Y Menses Monthly N STIs/STDs N HPV Vaccine Y Date of Last Pap Smear 06/24/2022 Sexual Problems? N Current Control Method None Age at Menarche 11 LMP Definite Obstetrics History GPAL:G 3 P 2 0 1 2 Type Value Full Term 2 Spontaneous 1 Living 2 Total 3 Immunizations Vaccine Type Date Status Note Provider Name and Address Organization Details Recorded Time Hep A, pediatric, unspecified formulation 05/24/19 09 completed Jaye [place] R[place], [place] [facility] 10/12/2022 11:48:25 influenza, split (incl. purified surface antigen) 02/01/20 10 completed [place]e [place] [facility] 10/12/2022 11:42:10 Influenza, split virus, quadrivalent, PF 01/16/20 14 completed [place]e [place] [facility] 10/12/2022 11:42:11 Hib (PRP-T) 01/10/20 02 completed [place]e [place] [facility] 10/12/2022 11:42:10 Hib (PRP-T) 04/04/20 01 completed [place]e [place] [facility] 10/12/2022 11:42:10 Hib (PRP-T) 12/04/19 01 completed [place]e [place] [facility] 10/12/2022 11:42:10 meningococcal B, OMV 02/02/20 17 completed [place] [facility] 10/12/2022 11:42:10 MMR 10/01/19 23 completed Nataly Webster APN, VERIFICATION SPECIALIST-C Attn: Accounting,[address] [facility], [place], [address], [place] [facility] 07/06/2023 09:28:02 Tdap 05/16/19 24 completed Nataly Webster APN, VERIFICATION SPECIALIST-C Attn: Accounting,[address] [facility], [place], [address], [place] [facility] 07/06/2023 09:26:06 Meningococcal MCV4O 02/02/20 17 completed Not Available [facility] 04/22/2019 02:39:18 influenza, intradermal, quadrivalent, preservative free 02/02/20 17 completed Not Available [facility] 04/22/2019 02:34:00 meningococcal B, OMV 07/28/19 18 completed Not Available [facility] 04/22/2019 02:51:06 Influenza, split virus, quadrivalent, PF 12/22/19 18 completed Not Available [facility] 04/22/2019 02:46:05 DTaP 12/16/19 05 completed Jaye Carmela[place] [facility] 10/12/2022 11:42:10 DTaP 01/29/20 completed Jaye Carmela[place] [facility] 10/12/2022 11:42:10 DTaP 01/10/20 02 completed Jaye Carmela[place] [facility] 10/12/2022 11:42:10 DTaP 12/04/19 completed Jaye Carmela[place] [facility] 10/12/2022 11:42:10 DTaP 04/04/20 completed Jaye Carmela[place] [facility] 10/12/2022 11:42:11 Hib, unspecified formulation 01/29/20 completed Jaye Carmela[place] [facility] 10/12/2022 11:42:10 HPV, unspecified formulation 10/15/19 12 completed Jaye Carmela[place] [facility] 10/12/2022 11:42:10 Hep B, adolescent or pediatric 01/29/20 completed Jaye Carmela[place] [facility] 10/12/2022 11:42:10 HPV, unspecified formulation 02/06/20 12 completed Jaye Carmela[place] [facility] 10/12/2022 11:42:10 Hep B, adolescent or pediatric 12/04/19 01 completed Jaye Carmela[place] [facility] 10/12/2022 11:42:10 HPV, unspecified formulation 10/26/19 13 completed Jaye Carmela[place] [facility] 10/12/2022 11:42:10 Hep A, ped/adol, 2 dose 05/24/19 09 completed Jaye Carmela[place] [facility] 10/12/2022 11:42:10 Hep B, adolescent or pediatric 04/04/20 01 completed Jaye Carmela[place] [facility] 10/12/2022 11:42:10 Hep A, ped/adol, 2 dose 04/14/19 07 completed Jaye Carmela[place] [facility] 10/12/2022 11:42:10 Hep B, adolescent or pediatric 01/10/20 02 completed Jaye Carmela[place] [facility] 10/12/2022 11:42:10 influenza, unspecified formulation 02/01/20 10 completed Jaye Carm[place] [facility] 10/12/2022 11:48:25 IPV 01/10/20 02 completed Jaye Carm[place] [facility] 10/12/2022 11:42:10 IPV 12/04/19 01 completed Jaye Carmela[place] [facility] 10/12/2022 11:42:10 IPV 12/16/19 05 completed Jaye Carmela[place] [facility] 10/12/2022 11:42:10 varicella 01/10/20 02 completed Jaye Carmela[place] [facility] 10/12/2022 11:42:10 meningococcal MCV4, unspecified formulation 10/15/19 12 completed Jaye Carm[place] [facility] 10/12/2022 11:42:11 Tdap 10/15/19 12 completed Jaye Carmela[place] [facility] 10/12/2022 11:42:10 IPV 01/29/20 01 completed Jaye Carmela[place] [facility] 10/12/2022 11:42:10 MMR 12/16/19 05 completed Jaye Carm[place] [facility] 10/12/2022 11:42:10 MMR 01/10/20 02 completed [place]e [place] [facility] 10/12/2022 11:42:10 varicella 05/24/19 09 completed Jaye Carmela, [place], [place] [facility] 10/12/2022 11:42:10 IPV 04/04/20 01 completed Jaye Carmela, [place] [facility] 10/12/2022 11:42:10 Influenza, split virus, quadrivalent, preservative 02/15/20 20 cancelled patient objection Nataly Webster APN, VERIFICATION SPECIALIST-C Attn: Accounting,[address] [facility], [place], [address], [facility] 02/15/2020 14:29:55 Tdap 10/15/19 21 completed Jaye Carmela, [place], [place] [facility] 10/14/2020 11:30:27 Influenza, split virus, quadrivalent, preservative 02/25/20 16 completed Jaye Carmela, [place], [place] [facility] 10/12/2022 11:42:10 Influenza, split virus, quadrivalent, preservative 12/27/19 15 completed Not Available [facility] 04/22/2019 02:32:09 Tdap 08/29/19 23 completed Yuri Stevens MD Attn: Accounting,[address] [facility], [place], [address], [facility] 08/28/2022 12:08:22 meningococcal B, unspecified 02/02/20 17 completed Jaye Casey, [place], [place] [facility] 10/12/2022 11:48:25 Past Encounters Encounter ID Performer Location Encounter Start Date Encounter Closed Date Diagnosis/Indication Diagnosis SNOMED-CT Code Diagnosis ICD10 Code Diagnosis Note [id number] JUN Small (Peds) [address] [place] [address] 11/16/2014 16:25:28 11/16/2014 17:16:37 Well child [id number] discussed routine adolescent care discussed safety and school performanc e Obesity 985409083 weight reduction with diet and exercise Tinea corporis 00862546 Hand eczema 046410268 [id number] MD Jasen Shah [facility] ([facility] 205) [address] [facility] [address] [place] [address] 11/20/2014 11:24:58 11/20/2014 12:41:17 Irregular periods 26191576 Cyst of ovary 33661792 [id number] Sofia Alvarado MA [facility] (Peds) [address] [place] [address] 12/26/2014 16:13:35 12/26/2014 18:21:51 Active or passive immunization 309916726 Tight chest 54676351 jeff pect likely due to combinatio n of exertion and anxiety. Reassuranc e. Start exercise program. [id number] [facility] [address] [facility] [place] [address] 03/11/2015 14:24:28 03/11/2015 17:38:50 Upper respiratory infection 29614617 J00 rest, tylenol, humdifier, etc [id number] [facility] [address] [facility] [place] [address] 06/17/2016 15:00:35 06/19/2016 11:40:54 Well child 323856719 Z00.129 discussed routine adolescent care discussed safety and school performanc e Obesity 222365106 E66.9 weight reduction with diet and exercise Mild inter mittent asthma 661333491 J45.20 [id number] MD [facility] [address] [facility] [place] [address] 07/07/2016 15:31:48 07/08/2016 15:08:11 Upper respiratory infection 94252156 J06.9 rest, tylenol prn, humidifier , etc [id number] MD Funmilayo Shahn Women ([facility] 205) [address] [facility] [address] [place] [address] 07/14/2016 11:26:13 07/14/2016 14:27:53 Contraception care management 377901699 Z30.9 [id number] [facility] [address] [facility] [place] [address] 01/01/2017 12:07:13 01/05/2017 11:16:36 Generalized headache 411722860 R51 suspect headache is secondary to sinus swelling based on location and time of year. discussed starting adult dose OTc loratadine and fluticason e. if symptoms do not improve RTC. [id number] [facility] [address] [place] [address] 02/01/2017 11:45:27 02/03/2017 13:17:11 Sprain of wrist and/or hand 361437765 S63.92XA continue ibuprofen and rest prn. if no improvemen t over next couple of weeks start OT. Active or passive immunization 467295203 Z23 [id number] [facility] [address] [place] [address] 07/27/2017 11:13:21 07/28/2017 10:19:58 Active or passive immunization 881433240 Z23 Seasonal a llergic rhinitis 599954538 J30.2 [id number] [facility] [address] [place] [address] 08/03/2017 14:00:04 08/04/2017 12:23:20 Obesity 206232941 E66.9 weight reduction with diet and exercise Pharyngitis 585034510 J0 2.9 warm salt water gargles. start prednisone to aid with swelling. [id number] MD [facility] [address] [facility] [place] [address] 08/19/2017 14:12:58 08/20/2017 12:15:30 Chronic hoarseness 5642366172 105 R49.0 d/w pt and mother. will start daily inhaled steriod to try and relieve any possible swelling/i rritation. use daily fluticason e. ent referral. [id number] LUIS MIGUEL [facility] [address] [place] [address] 12/21/2017 11:24:01 12/22/2017 12:23:53 Migraine 77193815 G43.909 continue ibuprofen 600 mg q 6 hours for HOPPER for next 48 hours. start amitriptyl ine. keep HOPPER diary. if no improvemen t in next 48 hours return to [facility] ED for neurology eval. Obesity 616219627 E66.9 weight reduction with diet and exercise [id number] MD Glenn Dodson (Peds) [address] [place] [address] 04/27/2018 10:43:40 04/28/2018 09:06:11 Headache 87387812 R51 discussed headache diary. resume amitriptyl ine use. Family shreyas nning education 956927421 Z30.02 reviewed importance of taking control and of using protection . [id number] MD Jasen Shah 14 OB [address] [facility] [address] [place] [address] 08/19/2018 10:59:41 08/22/2018 08:28:33 Contraception care management 069798711 Z30.9 [id number] FLETCHER Combs [address] [place] [address] 08/23/2019 14:57:45 08/23/2019 16:09:44 Suspected COVID-19 408421748 Z03.091 [id number] MD Glenn Dodson (Peds) [address] [place] [address] 09/06/2019 13:57:21 09/07/2019 08:43:20 Syncope 514057276 R55 pt has h/o syncope which is being followed and treated by [facility] neurology. pt has had 2 episodes while wearing her mask at work which sound consistent with previous episodes pt had before wearing her mask. neurology made note that pt's episodes may be triggered by anxiety. suspect these past 2 episodes were also triggered by anxiety of work/facia l covering. d/w pt that since employer appears to b willing to work with her that she should take prn breaks and go to a place she can safely remove the mask and then return to work. 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 Influenza vaccination declined 446450255 Z28.21 Seasonal a llergic rhinitis 966848727 J30.2 cont flonase and singulair for allergies Obesity 797887581 E66.9 advised low fat, low cholestero l diet, regular exercise and weight reduction. [id number] MD Jasen Shah 14 OB [address] [facility] [place] [address] 05/01/2020 09:44:40 05/02/2020 13:15:29 Routine care 888343940 Z34.90 Normal 3675095 2 Z34.90 [id number] MD Jasen Shah 14 OB [address] [facility] [place] [address] 06/24/2020 11:03:50 06/25/2020 11:50:26 Normal 73241497 Z34.90 [id number] MD Jasen Shah 14 OB [address] [facility] [place] [address] 08/26/2020 15:47:56 08/27/2020 13:08:26 Normal 20590176 Z34.90 [id number] MD Jasen Shah 14 OB [address] [facility] [place] [address] 09/19/2020 10:58:17 09/20/2020 11:51:16 Normal 43468613 Z34.90 [id number] MD Jasen Shah 14 OB [address] [facility] [place] [address] 10/14/2020 11:03:22 10/15/2020 08:07:15 Normal [id number] Z34.90 Administra tion of diphtheria, pertussis, and tetanus vaccine 697612131 Z23 [id number] MD Jasen Shah 14 OB [address] [facility] [place] [address] 10/21/2020 11:28:03 10/22/2020 07:43:17 Normal 75836225 Z34.90 [id number] MD Jasen Shah 14 OB [address] [facility] [place] [address] 10/28/2020 14:13:34 10/30/2020 11:32:39 Normal [id number] Z34.90 [id number] MD Jasen Shah 14 OB [address] [facility] [address] [place] [address] 11/04/2020 11:28:01 11/05/2020 07:40:35 Normal 01869631 Z34.90 - induced hypertension 16177945 O13.9 [id number] MD Jasen Shah 14 [address] [facility] [place] [address] 11/11/2020 12:52:51 11/12/2020 08:36:20 -induced hypertension 11370986 O13.9 [id number] MD Jasen Shah 14 [address] [facility] [address] [address] 11/25/2020 14:14:55 11/26/2020 08:05:02 care 103705728 Z39.2 - induced hypertension 29733649 O13.9 depression 58 349368 F53.0 Contracept ion care management 281548168 Z30.9 [id number] Nataly Webster APN, VERIFICATION SPECIALIST-C [facility] (Adult Med) [address] [facility] [place] [address] 06/12/2021 12:11:39 06/13/2021 10:46:30 Seasonal allergic rhinitis 454317185 J30.2 cont [facility] ing Obesity 783164115 E66.9 advised low fat, low cholestero l diet, regular exercise and weight reduction. 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 Seasonal a llergic rhinitis 060580591 J30.2 cont flonase and singulair for allergies Obesity 508213197 E66.9 advised low fat, low cholestero l diet, regular exercise and weight reduction. Migraine 56624821 G43.90 9 used to be on preventati ve meds, ok now except the one recent episode of vomiting [id number] MD Jasen Shah 14 OB [address] [facility] [place] [address] 06/24/2022 11:36:50 06/25/2022 10:26:08 Normal 60995977 Z34.90 Second tri mester 24754067 Z34.92 [id number] MD Jasen Shah OB 4 [facility] [place] [address] 07/10/2022 11:10:27 07/16/2022 10:15:50 Normal 58347829 Z34.90 Past pregn renee history of pre-eclampsia 2493313879 29767 Z87.59 [id number] MD Jasen Shah 14 OB [address] [facility] [place] [address] 07/31/2022 10:46:57 08/03/2022 12:39:23 Normal 51619139 Z34.90 [id number] MD Jasen Shah 14 OB [address] [facility] [place] [address] 08/28/2022 11:39:48 09/01/2022 09:12:54 Normal 82257721 Z34.90 Administra tion of diphtheria, pertussis, and tetanus vaccine 619320780 Z23 [id number] MD Jasen Shah 14 OB [address] [facility] [place] [address] 09/14/2022 11:25:56 09/15/2022 16:03:45 Normal 28082183 Z34.90 [id number] MD Jasen Shah 14 OB [address] [facility] [place] [address] 09/22/2022 11:27:31 10/03/2022 08:46:04 Normal [id number] Z34.90 [id number] MD Jasen Shah 14 OB 4 [facility] [place] [address] 10/12/2022 11:36:19 10/14/2022 09:40:37 care 938982320 Z39.2 depression 58 610911 F53.0 [id number] Nataly Webster APN, EVER Elizabeth (Adult Med) [address] [place] [address] 07/06/2023 09:05:49 07/08/2023 15:27:16 Hypertensive disorder 26535159 I10 was on labetalol while , no longer ,d wp starting propranolo l as well Obesity 358135269 E66.9 advised low fat, low cholestero l diet, regular exercise and weight reduction. 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 Depression screening 171 242902 Z13.31 tearful, would like to see both counselor and psych [id number] Nataly Webster APN, EVER Elizabeth (Adult Med) [address] [place] [address] 07/13/2023 11:25:42 07/22/2023 21:50:28 Hypertensive disorder 37991200 I10 was on labetalol while , no longer ,d wp starting propranolo l as wellconcer ns for orthostati c hypotensio n as cause Contusion of head 408312 009 S00.93XA 2nd head injury in 2 weekshas apt with neuro Syncope and collapse 309 914186 R55 will get ekg, may need cardio referral Obesity 151208972 E66.9 advised low fat, low cholestero l diet, regular exercise and weight reduction. Health Concerns Section Related Observation LastModified by Organization Detai ls LastModified Time None Recorded Concern Status LastModified by Organization Details LastModified Time None Recorded Advance Directives Directive N: Payers Encounter Date Sequence Insurance Name Policy Number Policy Gonzales Covered Member ID Gonzales Member ID Guarantor Name 09/14/2022 2 [place] [facility] [place] [facility] Bill Mariscal [id number] Bill Mariscal 09/22/2022 2 [place] [facility] [place] [facility] Bill Mariscal [id number] Bill Mariscal 10/12/2022 2 [place] [facility] Bill Mariscal [id number] Bill Mariscal 07/06/2023 1 [facility] [employer] [id number] Bill Mariscal [id number] Bill Mariscal 07/06/2023 2 [place] [facility] Bill Mariscal [id number] Bill Mariscal 07/13/2023 1 [facility] [id number] Bill Mariscal [id number] Bill Mariscal 07/13/2023 2 [place] [facility] Bill Mariscal [id number] Bill Mariscal Notes Date Note Type Note Provider Name and Address Organization Details Recorded Time 07/06/2023 text/html Wants referral to neuro- used to see ped neuro at [facility]. pt has chronic migraines for years with blurred vision of right eye.recently got new eye rx and that has helped some Nataly Webster APN, VERIFICATION SPECIALIST-C Attn: Accounting,[address] [facility], [place], [address], [facility] 07/07/2023 15:57:30 07/13/2023 text/html Passed out at work on 07/09/23 and did not to ER to be evaluated.Got dizzy and sat down, next thing she new she got up and felt pain on her head and noticed she had hit it;States its happened 2 weeks ago and was seen in at ER. ER told her labs were normal the last time so she did not want to go again. pt does currently have bruise on forehead from falling. States she been dizzy and constant headache since the fall but denies blurred vision Nataly Webster APN, VERIFICATION SPECIALIST-C Attn: Accounting,[address] [facility], [place], [address], [facility] 07/20/2023 00:03:20 OBGyn Episode Ob Episode Information Episode Created Date Number of Fetuses Patient Bloodtype Patient rh Status Prepregnancy Weight lbs Domestic Partner Domestic Partner Phone Father Name Braid Folder Status 06/25/19 23 1 O Positive CLOSED Fetus Data First Name Last Name Admitted to NICU Weight (g) Sex Living Outcome Pediatric Complications Fetus ID Race Codes Race Delivery Type Artemi s PRESL EY false 3246.04 [id number] M true Full Term [id number] 2106-3 White Vaginal Donald Calculation Initial Donald Date Initial Exam Date Initial Exam Provider Initial Ultrasound Date Last Menstrual Period Date Ultra Sound Weeks Gestation 10/05/2022 06/24/2022 07/03/2022 12/28/2021 26 Eighteen To Twenty Week Donald Update Ultra Sound Date Fundal Height At Umbil Quickening Date Ultra Sound Latest Weeks Gestation Final Donald Confirmed By Final Donald Confirmed Date Final Donald Date Ultra Sound Latest Days Gestation 08/22/19 23 33 10/06/19 23 4 Pre- Flowsheet Flowsheet Date 06/24/2022 Reyes Score Blood Edema Fundus Height Fundus Units Glucose Ketones Leukocytes Nitrite Labor Signs Protein Cervic Dilation Cervic Effacement Cervic Station 23 wks Type Weight in lbs Pre/Post Dialysis Refused With clothes 253.399182242034 BP Diastolic BP Location Tested BP Systolic BP Type 86 132 sitting Fetus Heart Rate Present A 145 Present Fetus Movement A Yes Comments Second , normal NOB exam, unknown LMP but size c/w 23 weeksFirst had PIH, was induced at 39 weeks, TK delivered on callwill start baby asa Flowsheet Date 07/10/2022 Reyes Score Blood Edema Fundus Height Fundus Units Glucose Ketones Leukocytes Nitrite Labor Signs Protein Cervic Dilation Cervic Effacement Cervic Station none 27 wks Type Weight in lbs Pre/Post Dialysis Refused With clothes 251.570485218298 BP Diastolic BP Location Tested BP Systolic BP Type 80 122 sitting Fetus Heart Rate Present A 143 Present Fetus Movement A Yes Comments doing well, will try to do s ugar test before next visitactive babyEDC established as 73 by US with unknown LMP. Flowsheet Date 07/31/2022 Reyes Score Blood Edema Fundus Height Fundus Units Glucose Ketones Leukocytes Nitrite Labor Signs Protein Cervic Dilation Cervic Effacement Cervic Station none 29 cm none neg Type Weight in lbs Pre/Post Dialysis Refused With clothes 251.51359689418 BP Diastolic BP Location Tested BP Systolic BP Type 79 121 sitting Fetus Heart Rate Present A 150 Present Fetus Movement A Yes Comments doing well, plan f/u US befo re next visit for outflow tractspassed sugar testactive baby Flowsheet Date 08/28/2022 Reyes Score Blood Edema Fundus Height Fundus Units Glucose Ketones Leukocytes Nitrite Labor Signs Protein Cervic Dilation Cervic Effacement Cervic Station none 32 cm none trace Type Weight in lbs Pre/Post Dialysis Refused With clothes 250.585376340328 BP Diastolic BP Location Tested BP Systolic BP Type 84 131 sitting Fetus Heart Rate Present A 143 Present Fetus Movement A Yes Comments 2nd baby, doing well, GBS do ne todaylabor precautions Flowsheet Date 09/14/2022 Reyes Score Blood Edema Fundus Height Fundus Units Glucose Ketones Leukocytes Nitrite Labor Signs Protein Cervic Dilation Cervic Effacement Cervic Station none 35 cm none neg 1cm 60% -3 Type Weight in lbs Pre/Post Dialysis Refused With clothes 258.712036755147 BP Diastolic BP Location Tested BP Systolic BP Type 89 131 sitting Fetus Heart Rate Present A 143 Present Fetus Movement A Yes Comments 37 weeks, second babylabor p recautions, no new issues Flowsheet Date 09/22/2022 Reyes Score Blood Edema Fundus Height Fundus Units Glucose Ketones Leukocytes Nitrite Labor Signs Protein Cervic Dilation Cervic Effacement Cervic Station none 36 cm none trace Type Weight in lbs Pre/Post Dialysis Refused With clothes 262.21965551486 BP Diastolic BP Location Tested BP Systolic BP Type 81 125 sitting Fetus Heart Rate Present A 145 Present Fetus Movement A Yes Comments Will be 39 weeks next week ; plan inductionlabor precautions, kick counts Flowsheet Date 10/12/2022 Reyes Score Blood Edema Fundus Height Fundus Units Glucose Ketones Leukocytes Nitrite Labor Signs Protein Cervic Dilation Cervic Effacement Cervic Station Type Weight in lbs Pre/Post Dialysis Refused With clothes 241.655000163101 BP Diastolic BP Location Tested BP Systolic BP Type 83 R arm 132 sitting Fetus Heart Rate Present Fetus Movement Comments Menstrual History Last Menstrual Date Menses Monthly On Bcp Conception Prior Menses Frequency Hcg Plus Date Menarche Onset Age 0912/28/2021 false 2 Genetic Screening And Infection History Question Response Note Patient's Age Will Be 35 Years Or Older At Estim ated Date of Delivery false Thalassemia (Zambian, Grenadian, Mediterranean, Or Background): MCV < 80 false Neural Tube Defect (Meningomyelocele, Spina Bifi da, Or Anencephaly) false Congenital Heart Defect false Down Syndrome false Varun-Sachs (eg, Mormon, Cajun, Kazakh-East Timorese) f alse Kush Disease false Sickle Cell Disease Or Trait () false Hemophilia Or Other Blood Disorders false Muscular Dystrophy false Cystic Fibrosis false Deborah's Chorea false Mental Retardation/Autism false If Yes, Was Person Tested For Fragile X? false Other Inherited Genetic Or Chromosomal Disorder false Maternal Metabolic Disorder (eg, Type 1 Diabetes , PKU) false Patient Or Baby's Father Had A Child With Defects Not Listed Above false Recurrent Loss, Or A Stillbirth false Medications (including Suppl ements, Vitamins, Herbs, OTC Drugs), Illicit/Recreational Drugs, Alcohol false If Yes, Agent(s) And Strength/Dosage false Any Other Genetic History false Live With Someone With TB Or Exposed To TB false Patient Or Partner Has History Of Genital Herpes false Rash Or Viral Illness Since Last Menstrual Perio d false History Of STD, Gonorrhea, Chlamydia, HPV, Syphi lis false Other Infection History false History of HIV false History of Hepatitis false Prior GBS-infected child false Delivery Information Delivery Date Delivery Type Labor Anesthesia Weeks Gestation Incision Type Labor Labor Length Hrs Delivered By Post Complications Tubal Sterilization Discharge Date Comments 3 Induce d 39.1 false Yuri Stevens MD 10/01/2022 Discharge Information Feeding Method Contraceptive Method Maternal HG B and HCT Levels Breast Ob Episode Information Episode Created Date Number of Fetuses Patient Bloodtype Patient rh Status Prepregnancy Weight lbs Domestic Partner Domestic Partner Phone Father Name Braid Folder Status 05/01/19 21 1 O Positive CLOSED Fetus Data First Name Last Name Admitted to NICU Weight (g) Sex Living Outcome Pediatric Complications Fetus ID Race Codes Race Delivery Type false 2834.95 M true Full Term 16941 [id number] White Vaginal Donald Calculation Initial Donald Date Initial Exam Date Initial Exam Provider Initial Ultrasound Date Last Menstrual Period Date Ultra Sound Weeks Gestation 11/10/2020 05/01/2020 [email or web address] 08/06/2020 02/04/2020 26 Eighteen To Twenty Week Donald Update Ultra Sound Date Fundal Height At Umbil Quickening Date Ultra Sound Latest Weeks Gestation Final Donald Confirmed By Final Donald Confirmed Date Final Donald Date Ultra Sound Latest Days Gestation 0 08/26/2020 11/11/19 21 0 Pre-estella Flowsheet Flowsheet Date 05/01/2020 Reyes Score Blood Edema Fundus Height Fundus Units Glucose Ketones Leukocytes Nitrite Labor Signs Protein Cervic Dilation Cervic Effacement Cervic Station 12 wks 0cm 0% -4 Type Weight in lbs Pre/Post Dialysis Refused With clothes 273.566369152866 BP Diastolic BP Location Tested BP Systolic BP Type Fetus Heart Rate Present A 165 Present Fetus Movement Comments Normal NOB visit. FHTs excel lent.Patient seeing me since she was 15. Not interested in adoption.Spirits seem good. Flowsheet Date 06/24/2020 Reyes Score Blood Edema Fundus Height Fundus Units Glucose Ketones Leukocytes Nitrite Labor Signs Protein Cervic Dilation Cervic Effacement Cervic Station none 20 wks none neg Type Weight in lbs Pre/Post Dialysis Refused With clothes 268.520723739217 BP Diastolic BP Location Tested BP Systolic BP Type 80 136 sitting Fetus Heart Rate Present A 145 Present Fetus Movement A Yes Comments doing well, not seen since N OB visit+FMplan US before next visit Flowsheet Date 08/26/2020 Reyes Score Blood Edema Fundus Height Fundus Units Glucose Ketones Leukocytes Nitrite Labor Signs Protein Cervic Dilation Cervic Effacement Cervic Station none 27 cm none neg Type Weight in lbs Pre/Post Dialysis Refused With clothes 273.741040825712 BP Diastolic BP Location Tested BP Systolic BP Type 88 142 standing Fetus Heart Rate Present A 154 Present Fetus Movement A Yes Comments not seen in 2 months. US con firmed due date. Is a boy; Atrius ( apparently Lorenzo's real name?)no new issuesreturn in 2 weeks for BP checkdoing sugartest today Flowsheet Date 09/19/2020 Reyes Score Blood Edema Fundus Height Fundus Units Glucose Ketones Leukocytes Nitrite Labor Signs Protein Cervic Dilation Cervic Effacement Cervic Station none 30 cm none neg Type Weight in lbs Pre/Post Dialysis Refused With clothes 276.013518150967 BP Diastolic BP Location Tested BP Systolic BP Type 88 136 sitting Fetus Heart Rate Present A 148 Present Fetus Movement A Yes Comments doing well, good baby moveme ntpassed sugar test, no big issues Flowsheet Date 10/14/2020 Reyes Score Blood Edema Fundus Height Fundus Units Glucose Ketones Leukocytes Nitrite Labor Signs Protein Cervic Dilation Cervic Effacement Cervic Station none 33 cm none neg Type Weight in lbs Pre/Post Dialysis Refused With clothes 280.557057685905 BP Diastolic BP Location Tested BP Systolic BP Type 84 128 sitting Fetus Heart Rate Present A 145 Present Fetus Movement A Yes Comments doing well, GBS done today, got TDAPlabor precautions, kick counts Flowsheet Date 10/21/2020 Reyes Score Blood Edema Fundus Height Fundus Units Glucose Ketones Leukocytes Nitrite Labor Signs Protein Cervic Dilation Cervic Effacement Cervic Station none 35 cm none neg Type Weight in lbs Pre/Post Dialysis Refused With clothes 285.092292150491 BP Diastolic BP Location Tested BP Systolic BP Type 98 140 sitting Fetus Heart Rate Present A 166 Present Fetus Movement A Yes Comments No complaints, good mv mnt. cervix just a FT, baby still highBP elevated in office today - will send to L&D for BP check and NST Flowsheet Date 10/28/2020 Reyes Score Blood Edema Fundus Height Fundus Units Glucose Ketones Leukocytes Nitrite Labor Signs Protein Cervic Dilation Cervic Effacement Cervic Station trace 36 cm none neg Type Weight in lbs Pre/Post Dialysis Refused With clothes 281.80361007809 BP Diastolic BP Location Tested BP Systolic BP Type 98 152 sitting Fetus Heart Rate Present A 145 Present Fetus Movement A Yes Comments doing OK, no protein, but el evated BPswill plan to do NST, labs on L&Ddiscussed risks, possible induction criteria Flowsheet Date 11/04/2020 Reyes Score Blood Edema Fundus Height Fundus Units Glucose Ketones Leukocytes Nitrite Labor Signs Protein Cervic Dilation Cervic Effacement Cervic Station 39 wks none 1+ 1cm 70% -4 Type Weight in lbs Pre/Post Dialysis Refused With clothes 283.860232322681 BP Diastolic BP Location Tested BP Systolic BP Type 104 156 sitting Fetus Heart Rate Present A 139 Present Fetus Movement A Yes Comments pt will be induced tonight f or PIH/pre-eclampsiacervix still just a FTdiscussed pros and cons of induction vs expectant mgmnt. ; anxious to proceed Flowsheet Date 11/11/2020 Reyes Score Blood Edema Fundus Height Fundus Units Glucose Ketones Leukocytes Nitrite Labor Signs Protein Cervic Dilation Cervic Effacement Cervic Station Type Weight in lbs Pre/Post Dialysis Refused With clothes 262.83448863097 BP Diastolic BP Location Tested BP Systolic BP Type 80 116 sitting Fetus Heart Rate Present Fetus Movement Comments Menstrual History Last Menstrual Date Menses Monthly On Bcp Conception Prior Menses Frequency Hcg Plus Date Menarche Onset Age 1102/04/2020 true Genetic Screening And Infection History Question Response Note Patient's Age Will Be 35 Years Or Older At Estim ated Date of Delivery false Thalassemia (Zambian, Grenadian, Mediterranean, Or Background): MCV < 80 false Neural Tube Defect (Meningomyelocele, Spina Bifi da, Or Anencephaly) false Congenital Heart Defect false Down Syndrome false Varun-Sachs (eg, Mormon, Cajun, Kazakh-East Timorese) f alse Kush Disease false Sickle Cell Disease Or Trait () false Hemophilia Or Other Blood Disorders false Muscular Dystrophy false Cystic Fibrosis false Deborah's Chorea false Mental Retardation/Autism false If Yes, Was Person Tested For Fragile X? false Other Inherited Genetic Or Chromosomal Disorder false Maternal Metabolic Disorder (eg, Type 1 Diabetes , PKU) false Patient Or Baby's Father Had A Child With Defects Not Listed Above false Recurrent Loss, Or A Stillbirth false Medications (including Suppl ements, Vitamins, Herbs, OTC Drugs), Illicit/Recreational Drugs, Alcohol false If Yes, Agent(s) And Strength/Dosage false Any Other Genetic History false Live With Someone With TB Or Exposed To TB false Patient Or Partner Has History Of Genital Herpes false Rash Or Viral Illness Since Last Menstrual Perio d false History Of STD, Gonorrhea, Chlamydia, HPV, Syphi lis false Other Infection History false History of HIV false History of Hepatitis false Prior GBS-infected child false Delivery Information Delivery Date Delivery Type Labor Anesthesia Weeks Gestation Incision Type Labor Labor Length Hrs Delivered By Post Complications Tubal Sterilization Discharge Date Comments 1 Induce d [facility] id[facility] 39.3 false Juan Hernandez MD (o/c) [facility] Discharge Information Feeding Method Contraceptive Method Maternal HG B and HCT Levels Breast
--- OUTSIDE RECORDS SUMMARY | 2024-06-14 12:57 | XMS_ITS ---
Author Organization [facility] Address [address] [place] [address] Phone Care Team Providers Care Box Blank Machine Operator Helper Name Role Phone WEBSTER DENITA, EVER, ADITI Primary Care Provider [phone] DINO HIDALGO, [place] Unavailable [phone] Plan of Treatment No Plan of Treatment Recorded Assessments Includes: Assessments for all patient encounters No Assessments Recorded Medical Equipment - Implanted Devices Includes: Current and historical Devices No Medical Equipment Recorded Medications Administered Includes: Administered Medications in patient's chart No Administered Medications Recorded Results Includes: Results from 06/15/2023 through 06/14/2024 No Results Recorded For Specified Dates History of Present Illness History of Present Illness not supported for this document type No History of Present Illness Recorded Social History No Social History Recorded - Smoking Status Unknown Medical History Includes: Medical History in patient's chart No Medical History Recorded Family History Includes: Family History in patient's chart No Family History Recorded Review of Systems Review of Systems not supported for this document type No Review of Systems Recorded Mental Status No Mental Status Recorded Functional Status No Functional Status Recorded Physical Exam Physical Exam not supported for this document type No Physical Exam Recorded Insurance Includes: Active Insurance Policies Plan Name Member ID Group # Subscriber Relationship Effect joselyn Dates 1 - [facility] [id number] RAYSA FERRO Child 09/04/2007 - Unknown 2 - MEDICAID - [facility] [id number] NOE FERRO Self Clinical Notes Includes: Signed Clinical Notes starting from 04/24/2022 No Clinical Notes Recorded
--- OUTSIDE RECORDS SUMMARY | 2024-06-14 12:57 | XMS_ITS | Clinical Summary ---
Author Organization [facility] Address [address] [place] [address] Phone Care Team Providers Care Power Line Installer And Repairer Name Role Phone Nataly Lui APRNPETE Primary Care Provider [phone] Allergies No known active allergies Medications No known medications Active Problems No known active problems Encounters Date Type Department Care Team Description 06/03/2024 10:31 PM DIPPER OPERATOR - 06/04/2024 12:35 AM DIPPER OPERATOR Emergency [facility] Emergency [address] [place] [address] Andrew Blanco MD Umbilical hernia Discharge Disposition: Discharged to home or Selfcare 06/03/2024 Travel from Last 3 Months Social History Tobacco Use Types Packs/Day Years Used Date Smoking Tobacco: Never Smokeless Tobacco: Never Tobacco Cessation:Counseling Given: Not Answered Alcohol Use Standard Drinks/Week Comments No 0 (1 standard drink = 0.6 oz pur e alcohol) Comments No Sex and Gender Information Value Date Recorded Sex Assigned at Not on file Legal Sex Female 12:23 AM CDT Gender Identity Not on file Sexual Orientation Not on file Last Filed Vital Signs Vital Sign Reading Time Taken Comments Blood Pressure 132/72 06/04/2024 12:15 AM DIPPER OPERATOR Pulse 75 06/04/2024 12:15 AM DIPPER OPERATOR Temperature 36.9 C (98.4 F) 06/03/2024 10:28 PM DIPPER OPERATOR Respiratory Rate 18 06/03/2024 10:28 PM DIPPER OPERATOR Oxygen Saturation 99% 06/04/2024 12:15 AM DIPPER OPERATOR Inhaled Oxygen Concentration - - Weight 108.9 kg (240 lb) 06/03/2024 10:28 PM DIPPER OPERATOR Height 162.6 cm (5' 4 ) 06/03/2024 10:28 PM DIPPER OPERATOR Body Mass Index 41.2 06/03/2024 10:28 PM DIPPER OPERATOR Plan of Treatment Health Maintenance Due Date Last Done Comments Hepatitis C Virus (HCV) Screening 2000 Pap Smear 2021 Influenza Immunization (#1) 12/05/202312/04, 02/01/2017, 02/25/2016, Additional history exists SARS-COV-2 Immunization ( season) 2023 Respiratory Syncytial Virus (RSV) Immunization (Adult) (1 - 1-dose 75+ series) 10/12/2075 Hepatitis B Immunization Completed 002, 04/04/2001, 01/28/2001, Additional history exists Polio (IPV) Immunization Discontinued 005, 01/09/2002, 04/04/2001, Additional history exists Hepatitis A Immunization Discontinued 009, 05/24/2008, 04/14/2006 Varicella Immunization Discontinued 05/24/2008, 2001 Human Papillomavirus (HPV) Immunization Completed 10/25/2012, 02/06/2012, 10/15/2011 Meningococcal Immunization (ACWY) Completed 02/01/2017, 10/15/2011 Meningococcal B Immunization Completed 07/27/2017, 02/01/2017 Measles Mumps Rubella (MMR) Immunization Discontinued 09/30/2022, 12/15/2004, 01/09/2002 DTaP/Tdap/Td Immunization Discontinued 2023, 08/28/2022, 10/14/2020, Additional history exists TdaP Immunization Completed 05/16/2023, , 10/14/2020, Additional history exists Pneumococcal Immunization Combined Aged Out No longer eligible based on patient's age to complete this topic Rotavirus Immunization Aged Out No lo nger eligible based on patient's age to complete this topic Procedures Procedure Name Priority Date/Time Associated Diagnosis Comments CT ABDOMEN PELVIS W/ CONTRAST Stat with Interpretation 06/03/2024 11:59 PM DIPPER OPERATOR CBC WITH AUTO DIFFERENTIAL STAT 06/03/2024 11:01 PM DIPPER OPERATOR HUMAN CHORIONIC GONADOTROPIN SCRN SERUM STAT 06/03/2024 11:01 PM DIPPER OPERATOR LIPASE STAT 06/03/2024 11:01 PM DIPPER OPERATOR CMP (COMPREHENSIVE METABOLIC PANEL) STAT 06/03/2024 11:01 PM DIPPER OPERATOR COMPLETE BLOOD COUNT (CBC) WITH DIFF STAT 06/03/2024 11:01 PM DIPPER OPERATOR from Last 3 Months Results * CT ABDOMEN PELVIS W/ CONTRAST (06/03/2024 11:59 PM DIPPER OPERATOR) Anatomical Region Laterality Modality Abdomen N/A Computed Tomogra phy 06/04/2024 12:1 3 AM DIPPER OPERATOR Impressions 06/04/2024 12:15 AM DIPPER OPERATOR IMPRESSION: Umbilical hernia containing only peritoneal fat. Some stranding within the fat may suggest inflammation or some degree of strangulation of the tissue. Narrative 06/04/2024 12:15 AM DIPPER OPERATOR EXAM DESCRIPTION: CT ABDOMEN PELVIS W/ CONTRAST REASON FOR STUDY: Abd pain and lump above umbilicus starting in February and increasing in recent weeks. TECHNIQUE: CT scan of the abdomen and pelvis performed with intravenous and without oral contrast using helical scanning technique with dynamic intravenous contrast injection. Reconstructed coronal and sagittal MPR images reviewed. All images stored on PACS. Automated exposure control was used as a dose optimization technique for this examination. CONTRAST TYPE/DOSE: 100mL of IOPAMIDOL 76 % IV SOLN injected via Intravenous COMPARISON: None FINDINGS: LOWER CHEST: No significant pulmonary abnormalities. No effusion. LIVER: Normal size. No identified cystic or solid masses. GALLBLADDER: Unremarkable BILE DUCTS: No intrahepatic or extrahepatic ductal dilatation. SPLEEN: Normal size. No focal lesions. PANCREAS: No identified cystic or solid masses. No significant calcifications. No adjacent inflammation or peripancreatic fluid collections. Pancreatic duct not dilated. ADRENALS: Normal. KIDNEYS/URINARY TRACT: No identified significant cystic or solid masses. No visualized stones. No hydronephrosis or hydroureter. Symmetric enhancement. Urinary bladder is unremarkable. GI: No dilated bowel loops. No obvious wall thickening. Normal appendix. No significant diverticular disease. PERITONEUM: No ascites or free air. RETROPERITONEUM: No mass or adenopathy. REPRODUCTIVE: No significant abnormality. VASCULATURE: No abdominal aortic aneurysm. MUSCULOSKELETAL: No significant abnormality. OTHER: There is a umbilical hernia containing only peritoneal fat. The defect measures 2.7 cm. Some stranding within the fat may suggest inflammation or some degree of strangulation of the tissue. No bowel involvement is seen with the hernia. THIS IS AN ELECTRONICALLY VERIFIED FINAL REPORT 06/04/2024 12:13 AM - Electronically signed by Ryan Nicholas M.D. KH: VENICE Report ID: [id number] Reading Location: [place] [address] Procedure Note Ryna Nicholas MD - 06/04/2024 EXAM DESCRIPTION: CT ABDOMEN PELVIS W/ CONTRAST REASON FOR STUDY: Abd pain and lump above umbilicus starting in February and increasing in recent weeks. TECHNIQUE: CT scan of the abdomen and pelvis performed with intravenous and without oral contrast using helical scanning technique with dynamic intravenous contrast injection. Reconstructed coronal and sagittal MPR images reviewed. All images stored on PACS. Automated exposure control was used as a dose optimization technique for this examination. CONTRAST TYPE/DOSE: 100mL of IOPAMIDOL 76 % IV SOLN injected via Intravenous COMPARISON: None FINDINGS: LOWER CHEST: No significant pulmonary abnormalities. No effusion. LIVER: Normal size. No identified cystic or solid masses. GALLBLADDER: Unremarkable BILE DUCTS: No intrahepatic or extrahepatic ductal dilatation. SPLEEN: Normal size. No focal lesions. PANCREAS: No identified cystic or solid masses. No significant calcifications. No adjacent inflammation or peripancreatic fluid collections. Pancreatic duct not dilated. ADRENALS: Normal. KIDNEYS/URINARY TRACT: No identified significant cystic or solid masses. No visualized stones. No hydronephrosis or hydroureter. Symmetric enhancement. Urinary bladder is unremarkable. GI: No dilated bowel loops. No obvious wall thickening. Normal appendix. No significant diverticular disease. PERITONEUM: No ascites or free air. RETROPERITONEUM: No mass or adenopathy. REPRODUCTIVE: No significant abnormality. VASCULATURE: No abdominal aortic aneurysm. MUSCULOSKELETAL: No significant abnormality. OTHER: There is a umbilical hernia containing only peritoneal fat. The defect measures 2.7 cm. Some stranding within the fat may suggest inflammation or some degree of strangulation of the tissue. No bowel involvement is seen with the hernia. THIS IS AN ELECTRONICALLY VERIFIED FINAL REPORT 06/04/2024 12:13 AM - Electronically signed by Ryan Nicholas M.D. KH: VENICE Report ID: [id number] Reading Location: [id number] IMPRESSION: Umbilical hernia containing only peritoneal fat. Some stranding within the fat may suggest inflammation or some degree of strangulation of the tissue. us Andrew Blanco MD IMG CT ORDERABLES Final Re sult * (ABNORMAL) CBC with Auto Differential (06/03/2024 11:01 PM DIPPER OPERATOR) WBC 6.41 4.00 - 12.00 10(3)/mcL 06/03/2024 11:07 PM [facility] RBC 4.43 3.80 - 5.30 10(6)/mcL 06/03/2024 11:07 PM [facility] HEMOGLOBIN (HGB) 11.5(L) 12.0 - 15.8 g/dL 06/03/2024 11:07 PM [facility] HEMATOCRIT (HCT) 35.4(L) 36.0 - 47.0 % 06/03/2024 11:07 PM [facility] MCV 79.9(L) 82.0 - 96.0 fL 06/03/2024 11:07 PM [facility] MCH 26.0 26.0 - 34.0 pg 06/03/2024 11:07 PM [facility] MCHC 32.5 31.0 - 36.0 g/dL 06/03/2024 11:07 PM [facility] PLATELET COUNT 261 140 - 440 10(3)/[facility] 06/03/2024 11:07 PM [facility] RDW 14.4 11.8 - 15.5 % 06/03/2024 11:07 PM [facility] MPV 9.0(L) 9.7 - 12.4 fL 06/03/2024 11:07 PM [facility] NEUTROPHILS 52.1 47.0 - 73.0 % 06/03/2024 11:07 PM [facility] LYMPHOCYTES 34.2 18.0 - 42.0 % 06/03/2024 11:07 PM [facility] MONOCYTES 8.3 4.0 - 12.0 % 06/03/2024 11:07 PM [facility] EOSINOPHILS 4.8 0.0 - 5.0 % 06/03/2024 11:07 PM [facility] BASOPHILS 0.6 0.0 - 1.0 % 06/03/2024 11:07 PM [facility] ABSOLUTE NEUTROPHILS 3.34 1.60 - 7.70 10(3)/[facility] 06/03/2024 11:07 PM [facility] ABSOLUTE LYMPHOCYTES 2.19 1.30 - 3.20 10(3)/[facility] 06/03/2024 11:07 PM [facility] ABSOLUTE MONOCYTES 0.53 0.20 - 1.00 10(3)/[facility] 06/03/2024 11:07 PM [facility] ABSOLUTE EOSINOPHIL 0.31 0.00 - 0.40 10(3)/[facility] 06/03/2024 11:07 PM [facility] ABSOLUTE BASOPHILS 0.04 0.00 - 0.10 10(3)/[facility] 06/03/2024 11:07 PM [facility] NRBC PER 100 WBC 0 06/04/19 11:07 PM [facility] Blood Venipuncture / Unknown 06/03/2024 11:01 PM [facility] 06/03/2024 11:04 PM DIPPER OPERATOR Andrew Blanco MD HEMATOLOGY ORDERABLES Olga l Result Performing Organization Address City/[facility]/ZIP Co de Phone Number [facility] [address] [place] [address] * Human Chorionic Gonadotropin Scrn Serum [id number] (06/03/2024 11:01 PM DIPPER OPERATOR) PREG-HCG Negative 06/03/2024 11:18 PM DIPPER OPERATOR [facility] Blood Venipuncture / Unknown 06/03/2024 11:01 PM DIPPER OPERATOR 06/03/2024 11:04 PM DIPPER OPERATOR Andrew Blanco MD CHEMISTRY ORDERABLES Final Result Performing Organization Address [facility] Co de Phone Number [facility] [address] [place] [address] * Lipase (06/03/2024 11:01 PM DIPPER OPERATOR) LIPASE 16 8 - 78 U/L 06/03/2024 11:23 PM DIPPER OPERATOR [facility] Blood Venipuncture / Unknown 06/03/2024 11:01 PM DIPPER OPERATOR 06/03/2024 11:04 PM DIPPER OPERATOR Andrew Blanco MD CHEMISTRY ORDERABLES Final Result Performing Organization Address City/[facility]/ZIP Co de Phone Number [facility] [address] [place] [address] * (ABNORMAL) CMP (06/03/2024 11:01 PM DIPPER OPERATOR) SODIUM 142 136 - 145 mmol/L 06/03/2024 11:23 PM DIPPER OPERATOR [facility] POTASSIUM 3.4(L) 3.5 - 5.1 mmol/L 06/03/2024 11:23 PM DIPPER OPERATOR [facility] CHLORIDE 110(H) 98 - 107 mmol/L 06/03/2024 11:23 PM [facility] CO2, VENOUS 21(L) 22 - 30 mmol/L 06/03/2024 11:23 PM [facility] ANION GAP 14.4 <18.0 mmol/L 06/03/2024 11:23 PM [facility] GLUCOSE 114(H) 70 - 99 mg/dL 06/03/2024 11:23 PM [facility] BUN 10 5 - 18 mg/dL 06/03/2024 11:23 PM [facility] CREATININE, BLOOD 0.94 0.60 - 1.00 mg/dL 06/03/2024 11:23 PM [facility] BUN/CREATININE RATIO 11(L) 12 - 20 ratio 06/03/2024 11:23 PM [facility] TOTAL PROTEIN 7.1 6.0 - 8.0 g/dL 06/03/2024 11:23 PM [facility] ALBUMIN 4.2 3.5 - 5.0 g/dL 06/03/2024 11:23 PM [facility] A/G RATIO 1.4 1.0 - 2.2 06/03/2024 11:23 PM [facility] CALCIUM 9.1 8.7 - 10.5 mg/dL 06/03/2024 11:23 PM [facility] T BILI 0.3 0.2 - 1.2 mg/dL 06/03/2024 11:23 PM [facility] SGOT (AST) 29 <43 U/L 06/03/2024 11:23 PM [facility] SGPT (ALT) 21 <56 U/L 06/03/2024 11:23 PM [facility] ALKALINE PHOSPHATASE 64 40 - 150 U/L 06/03/2024 11:23 PM [facility] GFR, ESTIMATED >60 >=60 06/03/2024 11:23 PM [facility] Comment: Creatinine Clearance is the preferred criteria for selecting drug dose adjustments in renally impaired patients. The GFR is provided as additional pertinent clinical information. GFR is reported in mL/min/1.73 sq m. Calculation based on the Chronic Kidney Disease Epidemiology Collaboration (CKD- EPI) equation refit without adjustment for race. GFR, EST. >60 >=60 025 11:23 PM DIPPER OPERATOR [facility] GFR, EST. NONAFRICAN >60 >=60 06/03/2024 11:23 PM DIPPER OPERATOR [facility] Blood Venipuncture / Unknown 06/03/2024 11:01 PM DIPPER OPERATOR 06/03/2024 11:04 PM DIPPER OPERATOR us Andrew Blanco MD CHEMISTRY ORDERABLES Final Result [facility] [address] [place] [address] from Last 3 Months [place] [employer] [place] [employer] [place] Care Teams Power Line Installer And Repairer Relationship Specialty Start Date End Date Nataly Lui APRN, PETE [address] [place] [address] PCP - General Family Medicine 06/24/23
--- OUTSIDE RECORDS SUMMARY | 2024-06-14 12:57 | XMS_ITS | Clinical Summary ---
Author Organization [facility] [place] [address] [place] [address] [place] [address] Care Team Providers Care Staff Research Associate Name Role Phone Lui, Nataly Dunaway NP Primary Care Provider [phone] Allergies No known active allergies Medications 25/iron [...] or more of gestation 02/13/2024 Term 09/29/2022 Encounters Date Type Department Care Team Description 04/07/2024 11:15 AM IRON LAUNDER OPERATOR Office Visit [facility] [address] [place] [address] Sheron Breaux NP Dental infection (Primary Dx) from Last 3 Months Immunizations Immunization Administration Dates Next Due MMR 09/30/2022 Tdap 05/16/2023 Surgical History Surgery Date Site/Laterality Comments TONSILECTOMY, ADENOIDECTOMY, BILATERAL MYRINGOTOMY AND TUBES ADENOIDECTOMY Medical History Medical History Date Comments Migraines Social History Tobacco Use Types Packs/Day Years [...] week 09/29/2022 How often do you attend [facility] or anabaptism services? Patient declined 09/29/2022 Do you belong to any clubs o r organizations such as jain groups, unions, fraternal or athletic groups, or [...] staff should administer the PHQ-9) 0 09/29/2022 [facility] - Occupational [...] place to sleep or slept in a halfway (including now)? No 09/29/2022 Personal Safety Answer Date Recorded Have you ever been in or are you currently in a harmful physical or emotional relationship or is someone making you feel afraid or unsafe? Denies 03/10/2024 Comments No Sex and Gender Information Value Date Recorded Sex Assigned at Not on file Legal Sex Female 6:26 AM IRON LAUNDER OPERATOR Gender Identity Not on file Sexual Orientation Not on file Obstetrics History Para Term AB IAB SAB Ectopic Multiple Livin g Live Births 4 3 2 1 1 1 0 2 2 Date Outcome GA Total Labor Labor/2nd/3rd Weight Sex Type Anes PTL Estefania A1 A5 Name Clin SAB 2020 Term 39w 3d 1h 15m 0h 13m/0h 57m/0h 05m 2.831 kg (6 lb 3.9 oz) M Vag-Sp ont Epidur al N Livin g 7 8 SHAR HALL,MADI SOLIST Shadi Moseley MD Complications:None Delivery Location:[facility]) 2022 Term 39w 1d 0h 39m 0h 14m/0h 21m/0h 04m 3.245 kg (7 lb 2.5 oz) M Vagina l Epidur al N Livin g 9 9 SHAR HALL,MADI montes, Terry walker MD Complications:None Delivery Location:[facility]) 2023 21w 1d 0h 11m 0h 11m 0.066 kg (2.3 oz) Vagina l None Y Demis e 0 0 Fredy neysP endin g FD Shar hall Hardciarra an, Shahriar grewal MD Complications:Other (Comment ),Intrauterine at 20 weeks or more of gestation Delivery Location:[facility]) Last Filed Vital Signs Vital Sign Reading Time Taken Comments Blood Pressure 106/60 04/07/2024 11:08 AM IRON LAUNDER OPERATOR Pulse 76 04/07/2024 11:08 AM IRON LAUNDER OPERATOR Temperature 37.1 C (98.7 F) 04/07/2024 11:08 AM IRON LAUNDER OPERATOR Respiratory Rate 16 04/07/2024 11:08 AM IRON LAUNDER OPERATOR Oxygen Saturation 99% 04/07/2024 11:08 AM IRON LAUNDER OPERATOR Inhaled Oxygen Concentration - - Weight 99.8 kg (220 lb) 04/07/2024 11:08 AM IRON LAUNDER OPERATOR Height 162.6 cm (5' 4 ) 04/07/2024 11:08 AM IRON LAUNDER OPERATOR Body Mass Index 37.76 04/07/2024 11:08 AM IRON LAUNDER OPERATOR Plan of Treatment Health Maintenance Due Date Last Done Comments Cervical Cancer Screening 2000 Hepatitis C Screening 2000 Regular Well Visit/Exam 18-64 2018 Chlamydia and Gonorrhea (GC/CT) Screening 12/19/2018 12/19/2017 Depression Screening 09/29/2023 09/28/2022, 09/28/2022, 08/11/2022, Additional history exists Influenza Vaccine (#1) 2023 8, 02/01/2017, 02/25/2016, Additional history exists DTaP/Tdap/Td Vaccine (10 - Td or Tdap) 05/16/2033 05/16/2023, 08/28/2022, 10/14/2020, Additional history exists Hepatitis B Screening Completed 01/09/2002 , 04/04/2001, 01/28/2001, Additional history exists Varicella Vaccines Completed 05/24/2008, 01/09/2002 HPV Vaccines Completed 10/25/2012, 06/2011, 10/15/2011 Meningococcal B Vaccine Completed 07/27/2017, 02/01 Pneumococcal vaccine <65 Aged Out No longer eligible based on [...] trachomatis rRNA Negative for: Neisseria gonorrhoeae rRNA [facility] Comment:Testing performed by : [facility], [address] [place] [address] Urine 12/19/2017 3:56 PM CDT 12/19/2017 4:13 PM CDT Narrative [facility] - 12/20/2017 2:04 PM CDT Testing performed by the Gen-Probe [employer] APTIMA Combo 2 Assay. This nucleic acid amplification test (NAAT) detects ribosomal RNA (rRNA) from Chlamydia trachomatis and Neisseria gonorrhoeae using target capture,and Lath Hand-Mediated Amplification (TMA). This test is approved by the [place] Food and Drug Administration for endocervical, vaginal, and male urethral swab specimens, in addition to male and female urine specimens. The performance characteristics for these specimen types have been verified by the [facility].The performance characteristics of this assay for pharyngeal and rectal specimens collected from cervical swab collection devices have been validated and verified by the [facility]. Verification studies support a lack of cross reactivity with other Neisseria species considered normal oropharyngeal bacterial markel. Rectal swab specimens containing excess stool may be inhibitory and result in false negatives for Chlamydia trachomatis or Neisseria gonorrhoeae. The performance characteristics of this test have not been evaluated in women or individuals less than 16 years of age. Eugenia Pabon MD LAB MICROBIOLOGY - GENERAL ORDERABLES Final Result [facility] Department [place] [address] from Last 3 Months or Most Recently Relevant to Health Maintenance Insurance [facility] PPO COMMERCIAL GENERIC [facility] IDPA [facility] IDPA [facility] ACCESS CHOICE IDPA [facility] CMR Advance Directives For more information, please contact: [phone] * Full Code (Latest Code Status on [...] c ase of cardiopulmonary arrest Care Teams Staff Research Associate Relationship Specialty Start Date End Date Nataly Lui NP [address] [place] [address] PCP - General 09/11/20
[2024-06-14] MEDS: KETOROLAC 30 MG/ML VIAL (*BKC) IV PUSH (13:02)
[2024-06-14] MEDS: methocarbamoL 750 MG TABLET 1500 MG PO (13:02)
--- OUTSIDE RECORDS SUMMARY | 2024-06-14 14:37 | XMS_ITS | Clinical Summary ---
Author Organization [facility] [address] [place] [address] [place] [id number] Care Team Providers Care Babbitter Name Role Phone Lui, Nataly Dunaway NP Primary Care Provider [phone] Allergies No known active allergies Medications 25/iron [...] Department Care Team Description 04/07/2024 11:15 AM TIRE BUFFER Office Visit [facility] Convenient Care at [address] [place] [address] Sheron Breaux NP Dental infection (Primary Dx) [...] week 09/29/2022 How often do you attend [facility] or orthodox services? Patient declined 09/29/2022 Do you belong to any clubs o r organizations such as holiness groups, unions, fraternal or athletic groups, or [...] staff should administer the PHQ-9) 0 09/29/2022 [facility] - Occupational [...] place to sleep or slept in a jail (including now)? No 09/29/2022 Personal Safety Answer Date Recorded Have you ever been in or are you currently in a harmful physical or emotional relationship or is someone making you feel afraid or unsafe? Denies 03/10/2024 Comments No Sex and Gender Information Value Date Recorded Sex Assigned at Not on file Legal Sex Female 6:26 AM TIRE BUFFER Gender Identity Not on file Sexual Orientation [...] Comments Blood Pressure 106/60 04/07/2024 11:08 AM TIRE BUFFER Pulse 76 04/07/2024 11:08 AM TIRE BUFFER Temperature 37.1 C (98.7 F) 04/07/2024 11:08 AM TIRE BUFFER Respiratory Rate 16 04/07/2024 11:08 AM TIRE BUFFER Oxygen Saturation 99% 04/07/2024 11:08 AM TIRE BUFFER Inhaled Oxygen Concentration - - Weight 99.8 kg (220 lb) 04/07/2024 11:08 AM TIRE BUFFER Height 162.6 cm (5' 4 ) 04/07/2024 11:08 AM TIRE BUFFER Body Mass Index 37.76 04/07/2024 11:08 AM TIRE BUFFER Plan of Treatment Health Maintenance Due Date [...] trachomatis rRNA Negative for: Neisseria gonorrhoeae rRNA [facility] Comment:Testing performed by : [facility], [address] [place] [address] Urine 12/19/2017 3:56 PM CDT 12/19/2017 4:13 PM CDT Narrative [facility] - 12/20/2017 2:04 PM CDT Testing performed by the Gen-Probe Tigris APTIMA Combo 2 Assay. This nucleic acid amplification test (NAAT) detects ribosomal RNA (rRNA) from Chlamydia trachomatis and Neisseria gonorrhoeae using target capture,and Director Metabolism-Mediated Amplification (TMA). This test is approved by the [place] Food and Drug Administration for endocervical, vaginal, and male urethral swab specimens, in addition to male and female urine specimens. The performance characteristics for these specimen types have been verified by the [facility].The performance characteristics of this assay for pharyngeal and rectal specimens collected from cervical swab collection devices have been validated and verified by the [facility]. Verification studies support a lack [...] LAB MICROBIOLOGY - GENERAL ORDERABLES Final Result [facility] Department [place] [address] from Last 3 Months or Most Recently Relevant to Health Maintenance Insurance [facility] PPO COMMERCIAL GENERIC [facility] IDPA [facility] IDPA ANTHEM ACCESS CHOICE IDPA [facility] IPPLEX [facility] CMR Advance Directives For more information, please contact: [phone] * Full Code (Latest Code Status on [...] c ase of cardiopulmonary arrest Care Teams Babbitter Relationship Specialty Start Date End Date Nataly Lui NP [address] [place] [address] PCP - General 09/11/20
--- OUTSIDE RECORDS SUMMARY | 2024-06-14 14:37 | XMS_ITS | Referral Summary ---
Author Organization [facility] Address [address] [place] [address] Care Team Providers Care Equipment Records Supervisor Name Role Phone Michael Sagastume MD Primary Care Provider [phone] Source Comments [facility],non-owned Affiliates and Associated Physician Practices is amultiple site organization consisting of ambulatory clinics and hospital sitesin [place]. This disclosure is being madepursuant to the Care Everywhere program and may not contain all information available regarding this patient. Last updated 17.[facility] Allergies No known active allergies Medications * [...] fluticasone propionate (FLONASE) 50 MCG/ACT nasal spray [place] 2 sprays into each nostril once daily Aim at outer edges inside nostrils. 1 g 5 10/12/2019 Active montelukast (SINGULAIR) 5 MG chew tablet Take 1 tablet by mouth at bedtime 30 tablet 3 10/12/2019 Active sodium chloride-sodium bicarb 2300-700mg (NEILMED SINUS RINSE) 2300-700 MG Kit [place] 1 kit into each nostril as directed [...] Comments Blood Pressure 134/80 04/11/2020 2:51 PM VALET CASHIER Pulse 90 04/26/2019 9:11 AM VALET CASHIER Temperature 36.6 C (97.9 F) 04/27/2018 11:14 AM VALET CASHIER per pcp Respiratory Rate 20 04/27/2018 11:1 4 AM VALET CASHIER per pcp Oxygen Saturation 97% 04/26/2019 9:11 AM VALET CASHIER Inhaled Oxygen Concentration - - Weight 123.7 kg (272 lb 11.3 oz) 04/11/2020 2:51 PM VALET CASHIER Height 165.8 cm (5' 5.28 ) 04/11/2020 2:51 PM CS T Body Mass Index 45 04/11/2020 2:51 PM VALET CASHIER Plan of Treatment Not on file DAVEYORIN Personal/Famil y Other [address] [place] [address] DAVEYORIN Personal/Famil y Other [address] [place] [address] RAYSA MARISCAL Personal/Famil y Other [address] [place] [address] DAVEYORIN Personal/Famil y Other [address] [place] [address] DAVEYORIN Personal/Famil y Other [address] [place] [address] ORIN MARISCAL Personal/Famil y Other [address] [place] [address] Care Teams Equipment Records Supervisor Relationship Specialty Start Date End Date Michael Sagastume MD [address] [place], [place] [phone] PCP - General 12/31/17
--- OUTSIDE RECORDS SUMMARY | 2024-06-14 14:37 | XMS_ITS ---
Care Plan - [facility] Created on: June 14, 2024 AKSIE NOE Simon : 2000 Sex: Female Author Organization [facility] Address [address] [place] [address] Phone Care Team Providers Care Test Automation Architect Name Role Phone WEBSTER EVER BARGER, ADITI Primary Care Provider [phone] DINO HIDALGO, [place] Unavailable [phone]
--- OUTSIDE RECORDS SUMMARY | 2024-06-14 14:37 | XMS_ITS | Patient Health Summary ---
Author Organization [facility] Address [address] [place] [address] Care Team Providers Care Middle School Math Teacher Name Role Phone Michael Sagastume MD Primary Care Provider [phone] Note from [facility],non-owned Affiliates and Associated Physician Practices is amultiple site organization consisting of ambulatory clinics and hospital sitesin [place], [place], [place] and [place]. This disclosure is being madepursuant to the Care Everywhere program and may not contain all information available regarding this patient. Last updated 17.[facility] Allergies No known active allergies Medications * [...] propionate (FLONASE) 50 MCG/ACT nasal spray(Started 10/12/2019) [place] 2 sprays into each nostril once daily Aim at outer edges inside nostrils. 5 refills by 2020 * montelukast (SINGULAIR) 5 MG chew tablet(Started 10/12/2019) Take 1 tablet by mouth at bedtime 3 refills by 2020 * sodium chloride-sodium bicarb 2300-700mg (NEILMED SINUS RINSE) 2300-700 MG Kit (Started 10/12/2019) [place] 1 kit into each nostril as directed [...] Comments Blood Pressure 134/80 04/11/2020 2:51 PM OCCUPATIONAL REHABILITATION AIDE Pulse 90 04/26/2019 9:11 AM OCCUPATIONAL REHABILITATION AIDE Temperature 36.6 C (97.9 F) 04/27/2018 11:14 AM OCCUPATIONAL REHABILITATION AIDE per pcp Respiratory Rate 20 04/27/2018 11:1 4 AM OCCUPATIONAL REHABILITATION AIDE per pcp Oxygen Saturation 97% 04/26/2019 9:11 AM OCCUPATIONAL REHABILITATION AIDE Inhaled Oxygen Concentration - - Weight 123.7 kg (272 lb 11.3 oz) 04/11/2020 2:51 PM OCCUPATIONAL REHABILITATION AIDE Height 165.8 cm (5' 5.28 ) 04/11/2020 2:51 PM CS T Body Mass Index 45 04/11/2020 2:51 PM OCCUPATIONAL REHABILITATION AIDE Procedures * EKG 15-LEAD(Performed 01/24/2020) Performed for [...] (Bezet) 420 ms CG MUSE Calculated P [place] 90 degrees CG MUSE Calculated R [place] 88 degrees CG MUSE Calculated T [place] 62 degrees CG MUSE Interpretation EKG Normal sinus rhythm Normal ECG No previous ECGs available Confirmed by MD MICHELLE, KSENIA ([id number]) on 01/24/2020 6:12:56 PM CG MUSE 01/24/2020 11:5 4 AM CDT 01/24/2020 6:12 PM CDT Genet Manuel DIRECTOR SUMMER SESSIONS-ACCOUNT SERVICES COORDINATOR ECG ORDERA BLES CG MUSE * HEMOGLOBIN A1C (01/24/2020 11:36 AM CDT) Hemoglobin A1c 5.5 3.4 - 6.1 % 01/24/2020 12:36 PM CDT [facility] Estimated Average Glucose 111 mg/dL 01/24/2020 12:36 PM CDT [facility] Blood BLOOD SPECIMEN / Unknown Lab Venipuncture / Unknown 01/24/2020 11:36 AM CDT 01/24/2020 11:56 AM CDT Genet Manuel DIRECTOR SUMMER SESSIONS-ACCOUNT SERVICES COORDINATOR LAB - CHEM ISTRY ORDERABLES [facility] [address] [place] [address] * (ABNORMAL) CBC W DIFFERENTIAL (01/24/2020 11:36 AM CDT) WBC 7.2 4.4 - 10.7 x10E9/L 01/24/2020 12:30 PM CDT [facility] WBC Corrected 01/24/2020 12:30 PM CDT [facility] RBC 4.69 3.80 - 5.20 x10E12/L 01/24/2020 12:30 PM CDT [facility] Hemoglobin 12.6 12.0 - 15.6 gm/dL 01/24/2020 12:30 PM CDT [facility] Hematocrit 39.4 35.9 - 45.5 % 01/24/2020 12:30 PM CDT [facility] MCV 84.0 80.7 - 102.0 fl 01/24/2020 12:30 PM CDT [facility] MCH 26.9 26.7 - 34.0 pg 01/24/2020 12:30 PM CDT [facility] MCHC 32.0 30.8 - 35.9 gm/dL 01/24/2020 12:30 PM CDT [facility] Platelet Count 310 153 - 416 x10E9/L 01/24/2020 12:30 PM CDT [facility] RDW-CV 13.2 12.1 - 14.9 % 01/24/2020 12:30 PM CDT [facility] MPV 9.3(L) 9.4 - 12.9 fl 01/24/2020 12:30 PM CDT [facility] Neutrophils % 60.1 44.0 - 73.0 % 01/24/2020 12:30 PM CDT [facility] Lymphocytes % 31.9 20.0 - 43.0 % 01/24/2020 12:30 PM CDT [facility] Monocytes % 6.1 5.0 - 13.0 % 01/24/2020 12:30 PM CDT [facility] Eosinophils % 1.0 0.0 - 6.0 % 01/24/2020 12:30 PM CDT [facility] Basophils % 0.6 0.0 - 2.0 % 01/24/2020 12:30 PM CDT [facility] Immature Granulocytes 0.3 0 - 1 % 01/24/2020 12:30 PM CDT [facility] Neutrophil Absolute 4.35 2.01 - 7.14 x10E9/L 01/24/2020 12:30 PM CDT [facility] Lymphocytes Absolute 2.30 1.07 - 3.94 x10E9/L 01/24/2020 12:30 PM CDT [facility] Monocytes Absolute 0.44 0.26 - 1.07 x10E9/L 01/24/2020 12:30 PM CDT [facility] Eosinophils Absolute 0.07 0 - 0.47 x10E9/L 01/24/2020 12:30 PM CDT [facility] Basophils Absolute 0.04 0 - 0.08 x10E9/L 01/24/2020 12:30 PM CDT [facility] Immature Granulocytes Absolute 0.02 0.00 - 0.06 x10E9/L 01/24/2020 12:30 PM T [facility] nRBC Auto 0 /100 WBC 01/24/2020 12:30 PM T [facility] Blood BLOOD SPECIMEN / Unknown Lab Venipuncture / Unknown 01/24/2020 11:36 AM CDT 01/24/2020 11:56 AM CDT Genet Manuel APRN-ACCOUNT SERVICES COORDINATOR LAB - JOSÉ MIGUEL TOLOGY ORDERABLES Performing Organization Address City/State/[facility] Co de Phone Number [facility] [address] [place] [phone] * (ABNORMAL) COMPREHENSIVE METABOLIC PANEL (01/24/2020 11:36 AM CDT) [facility] Glucose 104 70 - 105 mg/dL 01/24/2020 12:34 PM CDT [facility] Sodium 140 136 - 145 mmol/L 01/24/2020 12:34 PM CDT [facility] Potassium 4.7 3.5 - 5.1 mmol/L 01/24/2020 12:34 PM T [facility] Chloride 108(H) 98 - 107 mmol/L 01/24/2020 12:34 PM T [facility] CO2 25 22 - 29 mmol/L 01/24/2020 12:34 PM CDT [facility] Calcium 8.97(L) 9.08 - 10.48 mg/dL 01/24/2020 12:34 PM T [facility] Anion Gap 7 5 - 20 mmol/L 01/24/2020 12:34 PM T [facility] BUN 4.3(L) 5.3 - 18.7 mg/dL 01/24/2020 12:34 PM T [facility] Creatinine 0.67 0.61 - 1.07 mg/dL 01/24/2020 12:34 PM T [facility] Alkaline Phosphatase 85 39 - 139 U/L 01/24/2020 12:34 PM CDT [facility] ALT 38 8 - 65 U/L 01/24/2020 12:34 PM T [facility] AST 28 5 - 34 U/L 01/24/2020 12:34 PM T [facility] Protein Total 7.3 6.3 - 8.2 gm/dL 01/24/2020 12:34 PM T [facility] Albumin 4.2 3.3 - 4.9 gm/dL 01/24/2020 12:34 PM T [facility] Bilirubin Total 0.3 0.3 - 1.2 mg/dL 01/24/2020 12:34 PM T [facility] eGFR by MDRD >60 >60 mL/min/1.7 3m2 01/24/2020 12:34 PM T [facility] eGFR by MDRD >60 >60 mL/min/1.7 3m2 01/24/2020 12:34 PM T [facility] Blood BLOOD SPECIMEN / Unknown Lab Venipuncture / Unknown 01/24/2020 11:36 AM CDT 01/24/2020 11:56 AM CDT Genet Manuel DIRECTOR SUMMER SESSIONS-ACCOUNT SERVICES COORDINATOR LAB - CHEM ISTRY ORDERABLES [facility] [address] [place] [phone] * (ABNORMAL) MAGNESIUM BLOOD (01/24/2020 11:36 AM CDT) Magnesium 2.7(H) 1.7 - 2.3 mg/dL 01/24/2020 12:37 PM CDT [facility] Blood BLOOD SPECIMEN / Unknown Lab Venipuncture / Unknown 01/24/2020 11:36 AM CDT 01/24/2020 11:56 AM CDT Genet Manuel DIRECTOR SUMMER SESSIONS-ACCOUNT SERVICES COORDINATOR LAB - CHEM ISTRY ORDERABLES [facility] [address] [place] [address] * LIPASE BLOOD (01/24/2020 11:36 AM CDT) Lipase 14 10 - 220 U/L 01/24/2020 12:35 PM CDT [facility] Blood BLOOD SPECIMEN / Unknown Lab Venipuncture / Unknown 01/24/2020 11:36 AM CDT 01/24/2020 11:56 AM CDT Genet Manuel DIRECTOR SUMMER SESSIONS-ACCOUNT SERVICES COORDINATOR LAB - CHEM ISTRY ORDERABLES Performing Organization Address City/[facility] Co de Phone Number [facility] [address] [place] [phone] * AMYLASE BLOOD (01/24/2020 11:36 AM CDT) Amylase 40 25 - 125 U/L 01/24/2020 12:35 PM CDT [facility] Blood BLOOD SPECIMEN / Unknown Lab Venipuncture / Unknown 01/24/2020 11:36 AM CDT 01/24/2020 11:56 AM CDT Genet Manuel DIRECTOR SUMMER SESSIONS-ACCOUNT SERVICES COORDINATOR LAB - CHEM ISTRY ORDERABLES Performing Organization Address City/[facility]/ZIP Co de Phone Number [facility] [address] [place] [phone] * TSH (01/24/2020 11:36 AM CDT) TSH 0.52 0.35 - 4.95 uIU/mL 01/24/2020 12:58 PM CDT [facility] Blood BLOOD SPECIMEN / Unknown Lab Venipuncture / Unknown 01/24/2020 11:36 AM CDT 01/24/2020 11:56 AM CDT Genet Manuel DIRECTOR SUMMER SESSIONS-ACCOUNT SERVICES COORDINATOR LAB - CHEM ISTRY ORDERABLES Performing Organization Address City/[facility]/ZIP Co de Phone Number [facility] [place] [address] * T4 FREE (01/24/2020 11:36 AM CDT) T4 Free 1.03 0.70 - 1.48 ng/dL 01/24/2020 1:00 PM CDT [facility] Blood BLOOD SPECIMEN / Unknown Lab Venipuncture / Unknown 01/24/2020 11:36 AM CDT 01/24/2020 11:56 AM CDT Genet Manuel DIRECTOR SUMMER SESSIONS-ACCOUNT SERVICES COORDINATOR LAB - CHEM ISTRY ORDERABLES Performing Organization Address [facility] Co de Phone Number [facility] [address] [place] [phone] * PEDIATRIC DIAGNOSTIC POLYSOMNOGRAM (10/23/2018) Pathologist [facility] Linked Results See Linked Results [facility] 10/23/2018 Genet Manuel DIRECTOR SUMMER SESSIONS-ACCOUNT SERVICES COORDINATOR [facility] ER ORDERABLES [facility] Care Teams Middle School Math Teacher Relationship Specialty Start Date End Date Michael Sagastume MD [address] [place], [place] [id number] PCP - General 12/31/17
--- OUTSIDE RECORDS SUMMARY | 2024-06-14 14:37 | XMS_ITS | Clinical Summary ---
Author Organization [facility] Address [address] [facility] [place] [address] Care Team Providers Care Engineer Chief Name Role Phone Michael Sagastume MD Primary Care Provider [phone] Source Comments [facility],non-owned Affiliates and Associated Physician Practices is amultiple site organization consisting of ambulatory clinics and hospital sitesin [place], [place], [place] and [place]. This disclosure is being madepursuant to the Care Everywhere program and may not contain all information available regarding this patient. Last updated 17.[facility] Allergies No known active allergies Medications [...] fluticasone propionate (FLONASE) 50 MCG/ACT nasal spray [place] 2 sprays into each nostril once daily Aim at outer edges inside nostrils. 1 g 5 10/12/2019 Active montelukast (SINGULAIR) 5 MG chew tablet Take 1 tablet by mouth at bedtime 30 tablet 3 10/12/2019 Active sodium chloride-sodium bicarb 2300-700mg (NEILMED SINUS RINSE) 2300-700 MG Kit [place] 1 kit into each nostril as directed [...] Comments Blood Pressure 134/80 04/11/2020 2:51 PM DRAPERY SEAMSTRESS Pulse 90 04/26/2019 9:11 AM DRAPERY SEAMSTRESS Temperature 36.6 C (97.9 F) 04/27/2018 11:14 AM DRAPERY SEAMSTRESS per pcp Respiratory Rate 20 04/27/2018 11:1 4 AM DRAPERY SEAMSTRESS per pcp Oxygen Saturation 97% 04/26/2019 9:11 AM DRAPERY SEAMSTRESS Inhaled Oxygen Concentration - - Weight 123.7 kg (272 lb 11.3 oz) 04/11/2020 2:51 PM DRAPERY SEAMSTRESS Height 165.8 cm (5' 5.28 ) 04/11/2020 2:51 PM CS T Body Mass Index 45 04/11/2020 2:51 PM DRAPERY SEAMSTRESS Plan of Treatment Health Maintenance Due Date [...] this topic KASIE,ORIN Personal/Famil y Other [address] [place] [address] RAYSA MARISCAL Personal/Famil y Other [address] [place] [address] MARISCAL,ORIN Personal/Famil y Other [address] [place] [address] KASIE,ORIN Personal/Famil y Other [address] [place] [address] KASIE,ORIN Personal/Famil y Other [address] [place] [address] Care Teams Engineer Chief Relationship Specialty Start Date End Date Michael Sagastume MD [address] [place], [place] [id number] PCP - General 12/31/17
--- OUTSIDE RECORDS SUMMARY | 2024-06-14 14:37 | XMS_ITS | Referral Summary ---
Author Organization [address] Address [address] [place] [phone] Care Team Providers Care Control Tower Operator Name Role Phone Sania, Nataly Dunaway OFFICE SERVICES REPRESENTATIVE Primary Care Provider [phone] Encounters Date Type Department Care Team Description 04/07/2024 11:15 AM HARDWARE MANAGER Office Visit [facility] at [address] [place] [address] Sheron Breaux NP Dental infection [...] How often do you attend chur or zoroastrianism services? Patient declined 09/29/2022 Do you belong to any clubs o r organizations such as rastafarian groups, unions, fraternal or athletic groups, or [...] staff should administer the PHQ-9) 0 09/29/2022 [facility] - Occupational [...] place to sleep or slept in a longterm (including now)? No 09/29/2022 Personal Safety Answer Date Recorded Have you ever been in or are you currently in a harmful physical or emotional relationship or is someone making you feel afraid or unsafe? Denies 03/10/2024 Comments No Sex and Gender Information Value Date Recorded Sex Assigned at Not on file Legal Sex Female 6:26 AM HARDWARE MANAGER Gender Identity Not on file Sexual Orientation Not on file Last Filed Vital Signs Vital Sign Reading Time Taken Comments Blood Pressure 106/60 04/07/2024 11:08 AM HARDWARE MANAGER Pulse 76 04/07/2024 11:08 AM HARDWARE MANAGER Temperature 37.1 C (98.7 F) 04/07/2024 11:08 AM HARDWARE MANAGER Respiratory Rate 16 04/07/2024 11:08 AM HARDWARE MANAGER Oxygen Saturation 99% 04/07/2024 11:08 AM HARDWARE MANAGER Inhaled Oxygen Concentration - - Weight 99.8 kg (220 lb) 04/07/2024 11:08 AM HARDWARE MANAGER Height 162.6 cm (5' 4 ) 04/07/2024 11:08 AM HARDWARE MANAGER Body Mass Index 37.76 04/07/2024 11:08 AM HARDWARE MANAGER Plan of Treatment Not on file Procedures Procedure Name Priority Date/Time Associated Diagnosis Comments N. GONORRHOEAE/C. TRACHOMATIS AMPLIFICATION TEST STAT 12/19/2017 3:56 PM CDT from Last 3 Months or Most Recently Relevant to Health Maintenance Results * N. gonorrhoeae/C. trachomatis amplification test Urine (12/19/2017 3:56 PM CDT) Report Final Report: Negative for: Chlamydia trachomatis rRNA Negative for: Neisseria gonorrhoeae rRNA [facility] Comment:Testing performed by : [facility], [address] [place] [address] Urine 12/19/2017 3:56 PM CDT 12/19/2017 4:13 PM CDT Narrative [facility] - 12/20/2017 2:04 PM CDT Testing performed by the Gen-Probe Tigris APTIMA Combo 2 Assay. This nucleic acid amplification test (NAAT) detects ribosomal RNA (rRNA) from Chlamydia trachomatis and Neisseria gonorrhoeae using target capture,and Machine Icer-Mediated Amplification (TMA). This test is approved by the [facility] Food and Drug Administration for endocervical, vaginal, and male urethral swab specimens, in addition to male and female urine specimens. The performance characteristics for these specimen types have been verified by the [facility].The performance characteristics of this assay for pharyngeal and rectal specimens collected from cervical swab collection devices have been validated and verified by the [facility]. Verification studies support a lack [...] MICROBIOLOGY - GENERAL ORDERABLES Final Result [facility] [place] [address] from Last 3 Months or Most Recently Relevant to Health Maintenance Insurance [employer] [facility] PPO COMMERCIAL GENERIC [facility] IDPA [facility] HMO/PPO Address: [address] [place] [address] IDPA ANTHEM ACCESS CHOICE IDPA ANTH ACCESS CHOICE [facility] CMR Advance Directives For more information, please contact: [phone] * Full Code (Latest Code Status on [...] c ase of cardiopulmonary arrest Care Teams Control Tower Operator Relationship Specialty Start Date End Date Nataly Lui NP [address] [place] [address] PCP - General 09/11/20
--- OUTSIDE RECORDS SUMMARY | 2024-06-14 14:37 | XMS_ITS ---
Author Organization [facility] Address [address] [place] [address] Phone Care Team Providers Care Senior Energy Consultant Name Role Phone WEBSTER DENITA, EVER, ADITI Primary Care Provider [phone] DINO HIDALGO, [place] Unavailable [phone] Plan of Treatment No Plan [...] Subscriber Relationship Effect joselyn Dates 1 - [facility] [id number] RAYSA FERRO Child 09/04/2007 - Unknown 2 - MEDICAID - COUNT INCLUDES [facility] [id number] NOE FERRO Self Clinical Notes Includes: Signed Clinical Notes starting from 04/24/2022 No Clinical Notes Recorded
[2024-06-14 14:42] VITALS: BP 126/90; PULSE 73; RESP 18; O2SAT 100
== END 2024-06-14 14:44 | disposition home or self-care (01) ==
PROVIDERS: Emergency Provider Student in an Organized Health Care Education/Training Program; PCP Nurse Practitioner Family
DX: S39.012A Strain of muscle, fascia and tendon of lower back, initial encounter (principal); R10.9 Unspecified abdominal pain; K42.9 Umbilical hernia without obstruction or gangrene; E66.01 Morbid (severe) obesity due to excess calories; Z68.41 Body mass index [BMI] 40.0-44.9, adult; X58.XXXA Exposure to other specified factors, initial encounter
CPT/HCPCS: 36415; 74176; 80053; 81003; 81025; 83690; 85025; 96374; 99284; A9270; J1885